=== PATIENT | male | born 1935 | race Hispanic/Latino ===

== ENCOUNTER 2020-08-07 17:15 | Emergency (ER) | payer MEDICARE ==
--- NOTE | 2020-08-07 17:34 | Emergency Department Report ---
ED Altered Mental Status HPI - General Stated Complaint: AGRRESIVE,OLD WOUND ON BACK PUI?: No Time Seen by Provider: 08/07/20 17:23 Source: patient Mode of arrival: Ambulatory Limitations: Altered Mental Status - History of Present Illness Initial Comments: Chief complaint: Violent behavior HPI: This is an 85 yo male with hx of Alzheimer's dementia and CAD s/p CABG who presents with belligerent, violent behavior. Alzheimer's dementia diagnosis 7-8 years ago.Today he went "berzerk". He threatened to kill the neighbors. He was chasing the neighbors with stick, jose and objects. The belligerent behavior began one year ago. stated that he sounded like "a wild animal" in back of police car. Patient has threatened to harm . Patient will not take his medications. also states that patient will not shower. Patient also has a right shoulder wound. is able to crush up aspirin tablets and food. However he will not take his 1 medication for dementia consistently. Patient is hyperverbal with threatening statements full of expletives. "I will kill you. You son of a b---h." This statement was directed to the police offic er at his bedside. Patient is currently in handcuffs. Dr. 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 Complaint: other (belligerent, agitated, violent) -: year(s) (one year) Severity: severe Consistency of Symptoms: waxing and waning (for the past year, worse today) Associated Symptoms: denies other symptoms - Related Data Allergies Allergy/AdvReac Type Severity Reaction Status Date / Time Unable to Assess Allergy Verified 08/07/20 18:49 ED Review of Systems ROS: Stated complaint: AGRRESIVE,OLD WOUND ON BACK Other details as noted in HPI Comment: Unobtainable due to pts medical conditions (dementia) ED Past Medical Hx - Past Medical History Previous Medical History?: Yes Hx Dementia: Yes Additional medical history: CAD s/p CABG - Surgical History Past Surgical History?: Yes Hx Open Heart Surgery: Yes (CABG) - Social History Smoking Status: Former Smoker (cigars, tobacco) Substance Use Type: Alcohol ("consumed quite a bit" stopped drinking 10-15 years ago) ED Physical Exam - General Limitations: Altered Mental Status (dementia) General appearance: alert, in no apparent distress, other (agitated) - Head Head exam: Present: atraumatic, normocephalic - Eye Eye exam: Present: normal appearance - ENT ENT exam: Present: mucous membranes moist - Neck Neck exam: Present: normal inspection, full ROM - Respiratory Respiratory exam: Present: normal lung sounds bilaterally. Absent: respiratory distress, wheezes, rales, rhonchi - Cardiovascular Cardiovascular Exam: Present: regular rate, normal rhythm, normal heart sounds. Absent: systolic murmur, diastolic murmur, rubs, gallop - GI/Abdominal GI/Abdominal exam: Present: soft, normal bowel sounds. Absent: distended, tenderness, guarding, rebound - Rectal Rectal exam: Present: deferred - Extremities Exam Extremities exam: Present: normal inspection - Neurological Exam Neurological exam: Present: alert, other (oriented to name only) - Psychiatric Psychiatric exam: Present: agitated - Skin Skin exam: Present: warm, dry, normal color, other (Right shoulder posterior: 3 cm skin avulsion superficial no surrounding erythema purulence.). Absent: rash ED Course Vital Signs 08/07/20 08/08/20 08/08/20 17:47 01:06 06:00 Temperature 97.8 F Pulse Rate 95 H Respiratory 22 18 Rate Blood Pressure 148/84 147/73 Blood Pressure 155/96 [Left] O2 Sat by Pulse 99 99 Oximetry 08/08/20 08/08/20 08/08/20 08:00 10:01 12:02 Temperature Pulse Rate Respiratory Rate Blood Pressure 148/64 141/64 147/61 Blood Pressure [Left] O2 Sat by Pulse 96 99 Oximetry 08/08/20 08/08/20 08/08/20 20:00 22:00 23:02 Temperature Pulse Rate 78 76 Respiratory 18 18 Rate Blood Pressure 141/83 139/64 168/72 Blood Pressure [Left] O2 Sat by Pulse 99 98 Oximetry 08/09/20 08/09/20 08/09/20 00:00 01:00 02:00 Temperature 97.8 F Pulse Rate Respiratory Rate Blood Pressure 187/76 164/74 Blood Pressure [Left] O2 Sat by Pulse 91 96 Oximetry 08/09/20 08/09/20 08/09/20 03:00 04:00 06:00 Temperature Pulse Rate 86 96 H 79 Respiratory 18 20 Rate Blood Pressure 133/85 Blood Pressure 133/85 135/91 [Left] O2 Sat by Pulse 96 98 Oximetry 08/09/20 08/10/20 08/10/20 21:30 04:00 11:50 Temperature 98.5 F 97.8 F 98.2 F Pulse Rate 98 H 90 84 Respiratory 18 18 20 Rate Blood Pressure Blood Pressure 145/90 151/75 152/78 [Left] O2 Sat by Pulse 96 96 93 Oximetry - Lab Data Result diagrams: 08/07/20 18:29 08/07/20 18:29 Lab Results 08/07/20 08/07/20 08/07/20 Range/Units 18:29 18:29 18:29 WBC 11.9 H (4.5-11.0) K/mm3 RBC 4.38 (3.65-5.03) M/mm3 Hgb 14.0 (11.8-15.2) gm/dl Hct 41.4 (35.5-45.6) % MCV 94 (84-94) fl MCH 32 (28-32) pg MCHC 34 (32-34) % RDW 12.7 L (13.2-15.2) % Plt Count 231 (140-440) K/mm3 Lymph % (Auto) 6.7 L (13.4-35.0) % [place] % (Auto) 7.3 (0.0-7.3) % Eos % (Auto) 0.4 (0.0-4.3) % Baso % (Auto) 0.4 (0.0-1.8) % Lymph # (Auto) 0.8 L (1.2-5.4) K/mm3 [place] # (Auto) 0.9 H (0.0-0.8) K/mm3 Eos # (Auto) 0.0 (0.0-0.4) K/mm3 Baso # (Auto) 0.1 (0.0-0.1) K/mm3 Seg Neutrophils % 85.2 H (40.0-70.0) % Seg Neutrophils # 10.1 H (1.8-7.7) K/mm3 Sodium 136 L (137-145) mmol/L Potassium 4.0 (3.6-5.0) mmol/L Chloride 100.7 (98-107) mmol/L Carbon Dioxide 23 (22-30) mmol/L Anion Gap 16 mmol/L BUN 13 (9-20) mg/dL Creatinine 0.8 (0.8-1.3) mg/dL Estimated GFR > 60 ml/min BUN/Creatinine Ratio 16 % Glucose 169 H (75-100) mg/dL POC Glucose (70-105) mg/dL Calcium 9.0 (8.4-10.2) mg/dL Total Bilirubin 1.60 H (0.1-1.2) mg/dL AST 18 (5-40) units/L ALT 11 (7-56) units/L Alkaline Phosphatase 79 (35-129) units/L Total Protein 7.1 (6.3-8.2) g/dL Albumin 3.6 L (3.9-5) g/dL Albumin/Globulin Ratio 1.0 % TSH 0.971 (0.270-4.200) mlU/mL Urine Color (Yellow) Urine Turbidity (Clear) Urine pH (5.0-7.0) Ur Specific [place] (1.003-1.030) Urine Protein (Negative) mg/dL Urine Glucose (UA) (Negative) mg/dL Urine Ketones (Negative) mg/dL Urine Blood (Negative) Urine Nitrite (Negative) Urine Bilirubin (Negative) Urine Urobilinogen (<2.0) mg/dL Ur Leukocyte Esterase (Negative) Urine WBC (Auto) (0.0-6.0) /HPF Urine RBC (Auto) (0.0-6.0) /HPF U Epithel Cells (Auto) (0-13.0) /HPF Urine Mucus /HPF Salicylates (2.8-20.0) mg/dL Urine Opiates Screen Urine Methadone Screen Acetaminophen (10.0-30.0) ug/mL Ur Barbiturates Screen Ur Phencyclidine Scrn Ur Amphetamines Screen U Benzodiazepines Scrn Urine Cocaine Screen U Marijuana (THC) Screen Drugs of Abuse Note Plasma/Serum Alcohol (0-0.07) % Coronavirus (PCR) (Negative) 08/07/20 08/07/20 08/07/20 Range/Units 18:29 18:29 18:29 WBC (4.5-11.0) K/mm3 RBC (3.65-5.03) M/mm3 Hgb (11.8-15.2) gm/dl Hct (35.5-45.6) % MCV (84-94) fl MCH (28-32) pg MCHC (32-34) % RDW (13.2-15.2) % Plt Count (140-440) K/mm3 Lymph % (Auto) (13.4-35.0) % Gove % (Auto) (0.0-7.3) % Eos % (Auto) (0.0-4.3) % Baso % (Auto) (0.0-1.8) % Lymph # (Auto) (1.2-5.4) K/mm3 [place] # (Auto) (0.0-0.8) K/mm3 Eos # (Auto) (0.0-0.4) K/mm3 Baso # (Auto) (0.0-0.1) K/mm3 Seg Neutrophils % (40.0-70.0) % Seg Neutrophils # (1.8-7.7) K/mm3 Sodium (137-145) mmol/L Potassium (3.6-5.0) mmol/L Chloride (98-107) mmol/L Carbon Dioxide (22-30) mmol/L Anion Gap mmol/L BUN (9-20) mg/dL Creatinine (0.8-1.3) mg/dL Estimated GFR ml/min BUN/Creatinine Ratio % Glucose (75-100) mg/dL POC Glucose (70-105) mg/dL Calcium (8.4-10.2) mg/dL Total Bilirubin (0.1-1.2) mg/dL AST (5-40) units/L ALT (7-56) units/L Alkaline Phosphatase (35-129) units/L Total Protein (6.3-8.2) g/dL Albumin (3.9-5) g/dL Albumin/Globulin Ratio % TSH (0.270-4.200) mlU/mL Urine Color (Yellow) Urine Turbidity (Clear) Urine pH (5.0-7.0) Ur Specific [place] (1.003-1.030) Urine Protein (Negative) mg/dL Urine Glucose (UA) (Negative) mg/dL Urine Ketones (Negative) mg/dL Urine Blood (Negative) Urine Nitrite (Negative) Urine Bilirubin (Negative) Urine Urobilinogen (<2.0) mg/dL Ur Leukocyte Esterase (Negative) Urine WBC (Auto) (0.0-6.0) /HPF Urine RBC (Auto) (0.0-6.0) /HPF U Epithel Cells (Auto) (0-13.0) /HPF Urine Mucus /HPF Salicylates < 0.3 L (2.8-20.0) mg/dL Urine Opiates Screen Urine Methadone Screen Acetaminophen 5.0 L (10.0-30.0) ug/mL Ur Barbiturates Screen Ur Phencyclidine Scrn Ur Amphetamines Screen U Benzodiazepines Scrn Urine Cocaine Screen U Marijuana (THC) Screen Drugs of Abuse Note Plasma/Serum Alcohol < 0.01 (0-0.07) % Coronavirus (PCR) (Negative) 08/08/20 08/08/20 08/08/20 Range/Units Unknown Unknown Unknown WBC (4.5-11.0) K/mm3 RBC (3.65-5.03) M/mm3 Hgb (11.8-15.2) gm/dl Hct (35.5-45.6) % MCV (84-94) fl MCH (28-32) pg MCHC (32-34) % RDW (13.2-15.2) % Plt Count (140-440) K/mm3 Lymph % (Auto) (13.4-35.0) % Gove % (Auto) (0.0-7.3) % Eos % (Auto) (0.0-4.3) % Baso % (Auto) (0.0-1.8) % Lymph # (Auto) (1.2-5.4) K/mm3 [place] # (Auto) (0.0-0.8) K/mm3 Eos # (Auto) (0.0-0.4) K/mm3 Baso # (Auto) (0.0-0.1) K/mm3 Seg Neutrophils % (40.0-70.0) % Seg Neutrophils # (1.8-7.7) K/mm3 Sodium (137-145) mmol/L Potassium (3.6-5.0) mmol/L Chloride (98-107) mmol/L Carbon Dioxide (22-30) mmol/L Anion Gap mmol/L BUN (9-20) mg/dL Creatinine (0.8-1.3) mg/dL Estimated GFR ml/min BUN/Creatinine Ratio % Glucose (75-100) mg/dL POC Glucose (70-105) mg/dL Calcium (8.4-10.2) mg/dL Total Bilirubin (0.1-1.2) mg/dL AST (5-40) units/L ALT (7-56) units/L Alkaline Phosphatase (35-129) units/L Total Protein (6.3-8.2) g/dL Albumin (3.9-5) g/dL Albumin/Globulin Ratio % TSH (0.270-4.200) mlU/mL Urine Color Yellow (Yellow) Urine Turbidity Slightly-cloudy (Clear) Urine pH 5.0 (5.0-7.0) Ur Specific [place] 1.019 (1.003-1.030) Urine Protein 30 mg/dl (Negative) mg/dL Urine Glucose (UA) Neg (Negative) mg/dL Urine Ketones 80 (Negative) mg/dL Urine Blood Mod (Negative) Urine Nitrite Neg (Negative) Urine Bilirubin Neg (Negative) Urine Urobilinogen < 2.0 (<2.0) mg/dL Ur Leukocyte Esterase Neg (Negative) Urine WBC (Auto) 8.0 H (0.0-6.0) /HPF Urine RBC (Auto) 8.0 (0.0-6.0) /HPF U Epithel Cells (Auto) < 1.0 (0-13.0) /HPF Urine Mucus Few /HPF Salicylates (2.8-20.0) mg/dL Urine Opiates Screen Presumptive negative Urine Methadone Screen Presumptive negative Acetaminophen (10.0-30.0) ug/mL Ur Barbiturates Screen Presumptive negative Ur Phencyclidine Scrn Presumptive negative Ur Amphetamines Screen Presumptive negative U Benzodiazepines Scrn Presumptive negative Urine Cocaine Screen Presumptive negative U Marijuana (THC) Screen Presumptive negative Drugs of Abuse Note Disclamer Plasma/Serum Alcohol (0-0.07) % Coronavirus (PCR) Negative (Negative) 08/10/20 Range/Units 04:46 WBC (4.5-11.0) K/mm3 RBC (3.65-5.03) M/mm3 Hgb (11.8-15.2) gm/dl Hct (35.5-45.6) % MCV (84-94) fl MCH (28-32) pg MCHC (32-34) % RDW (13.2-15.2) % Plt Count (140-440) K/mm3 Lymph % (Auto) (13.4-35.0) % Gove % (Auto) (0.0-7.3) % Eos % (Auto) (0.0-4.3) % Baso % (Auto) (0.0-1.8) % Lymph # (Auto) (1.2-5.4) K/mm3 [place] # (Auto) (0.0-0.8) K/mm3 Eos # (Auto) (0.0-0.4) K/mm3 Baso # (Auto) (0.0-0.1) K/mm3 Seg Neutrophils % (40.0-70.0) % Seg Neutrophils # (1.8-7.7) K/mm3 Sodium (137-145) mmol/L Potassium (3.6-5.0) mmol/L Chloride (98-107) mmol/L Carbon Dioxide (22-30) mmol/L Anion Gap mmol/L BUN (9-20) mg/dL Creatinine (0.8-1.3) mg/dL Estimated GFR ml/min BUN/Creatinine Ratio % Glucose (75-100) mg/dL POC Glucose 84 (70-105) mg/dL Calcium (8.4-10.2) mg/dL Total Bilirubin (0.1-1.2) mg/dL AST (5-40) units/L ALT (7-56) units/L Alkaline Phosphatase (35-129) units/L Total Protein (6.3-8.2) g/dL Albumin (3.9-5) g/dL Albumin/Globulin Ratio % TSH (0.270-4.200) mlU/mL Urine Color (Yellow) Urine Turbidity (Clear) Urine pH (5.0-7.0) Ur Specific [place] (1.003-1.030) Urine Protein (Negative) mg/dL Urine Glucose (UA) (Negative) mg/dL Urine Ketones (Negative) mg/dL Urine Blood (Negative) Urine Nitrite (Negative) Urine Bilirubin (Negative) Urine Urobilinogen (<2.0) mg/dL Ur Leukocyte Esterase (Negative) Urine WBC (Auto) (0.0-6.0) /HPF Urine RBC (Auto) (0.0-6.0) /HPF U Epithel Cells (Auto) (0-13.0) /HPF Urine Mucus /HPF Salicylates (2.8-20.0) mg/dL Urine Opiates Screen Urine Methadone Screen Acetaminophen (10.0-30.0) ug/mL Ur Barbiturates Screen Ur Phencyclidine Scrn Ur Amphetamines Screen U Benzodiazepines Scrn Urine Cocaine Screen U Marijuana (THC) Screen Drugs of Abuse Note Plasma/Serum Alcohol (0-0.07) % Coronavirus (PCR) (Negative) - Medical Decision Making 1. Alzheimer's Dementia: violent behavior toward neighbors who called 911, patient presents to ED in handcuffs. I witnessed patient making threatening statements with homicidal intent. He required chemical and physical restraint upon arrival. Patient appears appropriate for admission to the geriatric mental health unit. Case management consultation requested. Patient is medically clear for psychiatric care. 2. Right shoulder wound: Skin avulsion, needs only minor supportive care. The wound is not tetanus prone. Tdap booster not administered Critical Care Time: Yes Critical care time in (mins) excluding proc time.: 40 Critical care attestation.: If time is entered above; I have spent that time in minutes in the direct care of this critically ill patient, excluding procedure time. 40 minutes of critical care time excluding procedures were used in the care of the patient. I came immediately to the bedside upon patient's arrival. I obtained history from police officers. Patient required immediate physical and chemical restraint. I discussed treatment plan with the nursing team members. I reviewed electronic record. I obtained collateral history from per phone. I was concerned for elopement. I was concerned that patient would attempt to harm staff or himself. Patient required multiple interventions and reassessments. ED Disposition Clinical Impression: Alzheimer's dementia with behavioral disturbance, Homicidal ideation Disposition: DC/TX-70 ANOTHER TYPE HLTHCARE Is pt being admited?: Yes Does the pt Need Aspirin: No Condition: Stable Referrals: DANIEL BRYANT MD [Primary Care Provider] - 3-5 Days
[2020-08-07] MEDS ORDERED: LORazepam 2 MG/ML VIAL IM STA (17:50)
[2020-08-07] MEDS ORDERED: HALOPERIDOL LACTATE 5 MG/1 ML INJ IM ONE (17:50)
[2020-08-07 18:56] LABS: Basophils # (Auto) 0.1 K/mm3 (0.0-0.1); Basophils % (Auto) 0.4 % (0.0-1.8); Eosinophils % (Auto) 0.4 % (0.0-4.3); Hematocrit 41.4 % (35.5-45.6); Lymphocytes # (Auto) 0.8 K/mm3 (1.2-5.4); Lymphocytes % (Auto) 6.7 % (13.4-35.0); Mean Corpuscular HGB Conc 34 % (32-34); Mean Corpuscular Volume 94 fl (84-94); Monocytes # (Auto) 0.9 K/mm3 (0.0-0.8); Monocytes % (Auto) 7.3 % (0.0-7.3); Platelet Count 231 K/mm3 (140-440); Red Blood Count 4.38 M/mm3 (3.65-5.03); Red Cell Distribution Width 12.7 % (13.2-15.2)
[2020-08-07 19:06] LABS: Alanine Aminotransferase 11 units/L (7-56); Albumin 3.6 g/dL (3.9-5); BUN/Creatinine Ratio 16; Blood Urea Nitrogen 13 mg/dL (9-20); Hemolysis Index 11
[2020-08-07] MEDS ORDERED: LORazepam 2 MG/ML VIAL IM PRN (22:22)
--- NOTE | 2020-08-08 10:12 | Consultation ---
History of Present Illness - Reason for Consult Consult date: 08/08/20 Reason for consult: aggression, threatening - History of Present Psychiatric Illness Per ED Note: HPI: This is an 85 yo male with hx of Alzheimer's dementia and CAD s/p CABG who presents with belligerent, violent behavior. Alzheimer's dementia diagnosis 7-8 years ago.Today he went "berzerk". He threatened to kill the neighbors. He was chasing the neighbors with stick, jose and objects. The belligerent behavior began one year ago. stated that he sounded like "a wild animal" in back of police car. Patient has threatened to harm . Patient will not take his medications. also states that patient will not shower. Patient also has a right shoulder wound. is able to crush up aspirin tablets and food. However he will not take his 1 medication for dementia consistently. Patient is hyperverbal with threatening statements full of expletives. "I will kill you. You son of a b---h." This statement was directed to the police inspector at his bedside. Patient is currently in handcuffs. The patient was seen today, he is confused, he is laying down mumbling and speaking nonsensically. I could not engage him in the interview. PAST PSYCHIATRIC HISTORY Unable to obtain PAST MEDICAL HISTORY: None reported Family Psychiatric History: None reported or documented SOCIAL HISTORY unable to obtain REVIEW OF SYSTEMS unable to obtain MENTAL STATUS EXAMINATION unable to obtain Assessment and Plan (1) Dementia with Behavioral Disturbance Current Visit: Yes Status: Acute Treatment Plan 1013 Olanzapine 2.5mg po daily Mirtazepine 7.mg po qhs Risks, benefits and alternatives of medications discussed with the patient, questions answered and consent obtained from patient. PSYCHOTHERAPY: Supportive psychotherapy provided MEDICAL: Per primary team DELIRIUM PRECAUTIONS: Please re-orient patient frequently, keep lights on during the day, and minimize benzodiazepines and opiates as these medications could worsen patient's confusion. GRANT SPECIALIST: Per primary DISPOSITION: Due to report of the patient's violent and aggressive behavior, recommend acute inpatient psychiatric hospitalization at this time. Will follow. Thank you for the consult. Please contact with any questions and/ or concerns. Case discussed with Dr. Ferro who agrees with current disposition Medications and Allergies Allergies Allergy/AdvReac Type Severity Reaction Status Date / Time Unable to Assess Allergy Verified 08/07/20 18:49 Active Meds: Active Medications Lorazepam (Lorazepam 2 Mg/Ml Vial) 2 mg IM Q4H PRN PRN Reason: Agitation Mental Status Exam - Vital signs Last Vital Signs Temp 97.8 F 08/08/20 01:06 Pulse 95 H 08/08/20 01:06 Resp 18 08/08/20 01:06 BP 148/64 08/08/20 08:00 Pulse Ox 96 08/08/20 08:00 Results Result Diagrams: 08/07/20 18:29 08/07/20 18:29 Abnormal lab results 08/07/20 08/07/20 08/07/20 Range/Units 18:29 18:29 18:29 WBC 11.9 H (4.5-11.0) K/mm3 RDW 12.7 L (13.2-15.2) % Lymph % (Auto) 6.7 L (13.4-35.0) % Lymph # (Auto) 0.8 L (1.2-5.4) K/mm3 [place] # (Auto) 0.9 H (0.0-0.8) K/mm3 Seg Neutrophils % 85.2 H (40.0-70.0) % Seg Neutrophils # 10.1 H (1.8-7.7) K/mm3 Sodium 136 L (137-145) mmol/L Glucose 169 H (75-100) mg/dL Total Bilirubin 1.60 H (0.1-1.2) mg/dL Albumin 3.6 L (3.9-5) g/dL Salicylates < 0.3 L (2.8-20.0) mg/dL Acetaminophen (10.0-30.0) ug/mL 08/07/20 Range/Units 18:29 WBC (4.5-11.0) K/mm3 RDW (13.2-15.2) % Lymph % (Auto) (13.4-35.0) % Lymph # (Auto) (1.2-5.4) K/mm3 [place] # (Auto) (0.0-0.8) K/mm3 Seg Neutrophils % (40.0-70.0) % Seg Neutrophils # (1.8-7.7) K/mm3 Sodium (137-145) mmol/L Glucose (75-100) mg/dL Total Bilirubin (0.1-1.2) mg/dL Albumin (3.9-5) g/dL Salicylates (2.8-20.0) mg/dL Acetaminophen 5.0 L (10.0-30.0) ug/mL All other labs normal.
--- NOTE | 2020-08-08 10:27 | Emergency Department Report ---
Blank Doc - Documentation Documentation: Awaiting transfer to psychiatric facility No new complaints
[2020-08-08] MEDS: MIRTAZAPINE 15 MG TAB PO SCH (22:30)
[2020-08-08 23:09] LABS: Amphetamine Screen,Urine PRESUMPTIVE NEGATIVE; Benzodiazepines Screen,Urine PRESUMPTIVE NEGATIVE; Bilirubin,Urine NEG (Negative); Blood,Urine MOD (Negative); Cannabinoid Screen,Urine PRESUMPTIVE NEGATIVE; Cocaine Screen,Urine PRESUMPTIVE NEGATIVE; Color,Urine Yellow (Yellow); Methadone Screen,Urine PRESUMPTIVE NEGATIVE; Mucus,Urine FEW /HPF; Opiate Screen,Urine PRESUMPTIVE NEGATIVE; Urobilinogen,Urine < 2.0 mg/dL (<2.0)
--- NOTE | 2020-08-09 11:28 | Progress Note ---
Subjective - Reason for Consult Consult date: 08/09/20 Reason for consult: agitation - Chief Complaint Chief complaint: The patient was seen today, he appears restless, and agitated, he is moving about over the bed. He is confused and talking nonsensically. I adjust the patient's arm which is hanging over the bed. He is resistant of me helping him. REVIEW OF SYSTEMS unable to obtain MENTAL STATUS EXAMINATION unable to obtain Assessment and Plan (1) Dementia with Behavioral Disturbance Current Visit: Yes Status: Acute Treatment Plan 1013 Increase Olanzapine 5mg po daily Continue Mirtazepine 7.mg po qhs Risks, benefits and alternatives of medications discussed with the patient, questions answered and consent obtained from patient. PSYCHOTHERAPY: Supportive psychotherapy provided MEDICAL: Per primary team DELIRIUM PRECAUTIONS: Please re-orient patient frequently, keep lights on during the day, and minimize benzodiazepines and opiates as these medications could worsen patient's confusion. EVENT PROMOTER: Per primary DISPOSITION: Due to report of the patient's violent and aggressive behavior, recommend acute inpatient psychiatric hospitalization at this time. Will follow. Thank you for the consult. Please contact with any questions and/or concerns. Case discussed with Dr. Ferro who agrees with current disposition Mental Status Exam - Vital signs Last Vital Signs Temp 97.8 F 08/09/20 01:00 Pulse 79 08/09/20 06:00 Resp 20 08/09/20 06:00 BP 135/91 08/09/20 06:00 Pulse Ox 98 08/09/20 06:00
[2020-08-09] MEDS ORDERED: diphenhydrAMINE 25 MG CAP PO PRN (12:45)
[2020-08-09] MEDS ORDERED: ACETAMINOPHEN 325 MG TAB PO PRN (12:45)
[2020-08-09] MEDS ORDERED: ONDANSETRON 4 MG ODT TAB PO PRN (12:45)
--- NOTE | 2020-08-09 12:48 | Event Note ---
Date: 08/09/20 The patient was evaluated in the emergency department for symptoms described in the history of present illness. He/she was evaluated in the context of the global COVID-19 pandemic, which necessitated consideration that the patient might be at risk for infection with the virus that causes COVID-19. Institutional protocols and algorithms that pertain to the evaluation of patients at risk for COVID-19 are in a state of rapid change based on information released by regulatory bodies including the CDC and federal and state organizations. These policies and algorithms were followed during the patient's care in the emergency department. Please note that these policies, procedures and recommendations changed on a rapid basis. Patient resting comfortably in stretcher at this time, and in no acute distress. Psychiatric recommendations are reviewed and appreciated. ER documentation is reviewed and appreciated. Nursing team endorses no events overnight. Laboratory studies vital signs are reviewed and appreciated. Urinalysis demonstrated pyuria. We will initiate Macrobid therapy. Patient remains medically suitable at this time for psychiatric placement, consultation. Patient does not appear to have an emergent medical condition present at this time. Vital Signs 08/07/20 08/08/20 08/08/20 17:47 01:06 06:00 Temperature 97.8 F Pulse Rate 95 H Respiratory 22 18 Rate Blood Pressure 148/84 147/73 Blood Pressure 155/96 [Left] O2 Sat by Pulse 99 99 Oximetry 08/08/20 08/08/20 08/08/20 08:00 10:01 12:02 Temperature Pulse Rate Respiratory Rate Blood Pressure 148/64 141/64 147/61 Blood Pressure [Left] O2 Sat by Pulse 96 99 Oximetry 08/08/20 08/08/20 08/08/20 20:00 22:00 23:02 Temperature Pulse Rate 78 76 Respiratory 18 18 Rate Blood Pressure 141/83 139/64 168/72 Blood Pressure [Left] O2 Sat by Pulse 99 98 Oximetry 08/09/20 08/09/20 08/09/20 00:00 01:00 02:00 Temperature 97.8 F Pulse Rate Respiratory Rate Blood Pressure 187/76 164/74 Blood Pressure [Left] O2 Sat by Pulse 91 96 Oximetry 08/09/20 08/09/20 08/09/20 03:00 04:00 06:00 Temperature Pulse Rate 86 96 H 79 Respiratory 18 20 Rate Blood Pressure 133/85 Blood Pressure 133/85 135/91 [Left] O2 Sat by Pulse 96 98 Oximetry Lab Results 08/07/20 08/07/20 08/07/20 Range/Units 18:29 18:29 18:29 WBC 11.9 H (4.5-11.0) K/mm3 RBC 4.38 (3.65-5.03) M/mm3 Hgb 14.0 (11.8-15.2) gm/dl Hct 41.4 (35.5-45.6) % MCV 94 (84-94) fl MCH 32 (28-32) pg MCHC 34 (32-34) % RDW 12.7 L (13.2-15.2) % Plt Count 231 (140-440) K/mm3 Lymph % (Auto) 6.7 L (13.4-35.0) % [place] % (Auto) 7.3 (0.0-7.3) % Eos % (Auto) 0.4 (0.0-4.3) % Baso % (Auto) 0.4 (0.0-1.8) % Lymph # (Auto) 0.8 L (1.2-5.4) K/mm3 [place] # (Auto) 0.9 H (0.0-0.8) K/mm3 Eos # (Auto) 0.0 (0.0-0.4) K/mm3 Baso # (Auto) 0.1 (0.0-0.1) K/mm3 Seg Neutrophils % 85.2 H (40.0-70.0) % Seg Neutrophils # 10.1 H (1.8-7.7) K/mm3 Sodium 136 L (137-145) mmol/L Potassium 4.0 (3.6-5.0) mmol/L Chloride 100.7 (98-107) mmol/L Carbon Dioxide 23 (22-30) mmol/L Anion Gap 16 mmol/L BUN 13 (9-20) mg/dL Creatinine 0.8 (0.8-1.3) mg/dL Estimated GFR > 60 ml/min BUN/Creatinine Ratio 16 % Glucose 169 H (75-100) mg/dL Calcium 9.0 (8.4-10.2) mg/dL Total Bilirubin 1.60 H (0.1-1.2) mg/dL AST 18 (5-40) units/L ALT 11 (7-56) units/L Alkaline Phosphatase 79 (35-129) units/L Total Protein 7.1 (6.3-8.2) g/dL Albumin 3.6 L (3.9-5) g/dL Albumin/Globulin Ratio 1.0 % TSH 0.971 (0.270-4.200) mlU/mL Urine Color (Yellow) Urine Turbidity (Clear) Urine pH (5.0-7.0) Ur Specific Hyrum (1.003-1.030) Urine Protein (Negative) mg/dL Urine Glucose (UA) (Negative) mg/dL Urine Ketones (Negative) mg/dL Urine Blood (Negative) Urine Nitrite (Negative) Urine Bilirubin (Negative) Urine Urobilinogen (<2.0) mg/dL Ur Leukocyte Esterase (Negative) Urine WBC (Auto) (0.0-6.0) /HPF Urine RBC (Auto) (0.0-6.0) /HPF U Epithel Cells (Auto) (0-13.0) /HPF Urine Mucus /HPF Salicylates (2.8-20.0) mg/dL Urine Opiates Screen Urine Methadone Screen Acetaminophen (10.0-30.0) ug/mL Ur Barbiturates Screen Ur Phencyclidine Scrn Ur Amphetamines Screen U Benzodiazepines Scrn Urine Cocaine Screen U Marijuana (THC) Screen Drugs of Abuse Note Plasma/Serum Alcohol (0-0.07) % Coronavirus (PCR) (Negative) 08/07/20 08/07/20 08/07/20 Range/Units 18:29 18:29 18:29 WBC (4.5-11.0) K/mm3 RBC (3.65-5.03) M/mm3 Hgb (11.8-15.2) gm/dl Hct (35.5-45.6) % MCV (84-94) fl MCH (28-32) pg MCHC (32-34) % RDW (13.2-15.2) % Plt Count (140-440) K/mm3 Lymph % (Auto) (13.4-35.0) % [place] % (Auto) (0.0-7.3) % Eos % (Auto) (0.0-4.3) % Baso % (Auto) (0.0-1.8) % Lymph # (Auto) (1.2-5.4) K/mm3 [place] # (Auto) (0.0-0.8) K/mm3 Eos # (Auto) (0.0-0.4) K/mm3 Baso # (Auto) (0.0-0.1) K/mm3 Seg Neutrophils % (40.0-70.0) % Seg Neutrophils # (1.8-7.7) K/mm3 Sodium (137-145) mmol/L Potassium (3.6-5.0) mmol/L Chloride (98-107) mmol/L Carbon Dioxide (22-30) mmol/L Anion Gap mmol/L BUN (9-20) mg/dL Creatinine (0.8-1.3) mg/dL Estimated GFR ml/min BUN/Creatinine Ratio % Glucose (75-100) mg/dL Calcium (8.4-10.2) mg/dL Total Bilirubin (0.1-1.2) mg/dL AST (5-40) units/L ALT (7-56) units/L Alkaline Phosphatase (35-129) units/L Total Protein (6.3-8.2) g/dL Albumin (3.9-5) g/dL Albumin/Globulin Ratio % TSH (0.270-4.200) mlU/mL Urine Color (Yellow) Urine Turbidity (Clear) Urine pH (5.0-7.0) Ur Specific Hyrum (1.003-1.030) Urine Protein (Negative) mg/dL Urine Glucose (UA) (Negative) mg/dL Urine Ketones (Negative) mg/dL Urine Blood (Negative) Urine Nitrite (Negative) Urine Bilirubin (Negative) Urine Urobilinogen (<2.0) mg/dL Ur Leukocyte Esterase (Negative) Urine WBC (Auto) (0.0-6.0) /HPF Urine RBC (Auto) (0.0-6.0) /HPF U Epithel Cells (Auto) (0-13.0) /HPF Urine Mucus /HPF Salicylates < 0.3 L (2.8-20.0) mg/dL Urine Opiates Screen Urine Methadone Screen Acetaminophen 5.0 L (10.0-30.0) ug/mL Ur Barbiturates Screen Ur Phencyclidine Scrn Ur Amphetamines Screen U Benzodiazepines Scrn Urine Cocaine Screen U Marijuana (THC) Screen Drugs of Abuse Note Plasma/Serum Alcohol < 0.01 (0-0.07) % Coronavirus (PCR) (Negative) 08/08/20 08/08/20 08/08/20 Range/Units Unknown Unknown Unknown WBC (4.5-11.0) K/mm3 RBC (3.65-5.03) M/mm3 Hgb (11.8-15.2) gm/dl Hct (35.5-45.6) % MCV (84-94) fl MCH (28-32) pg MCHC (32-34) % RDW (13.2-15.2) % Plt Count (140-440) K/mm3 Lymph % (Auto) (13.4-35.0) % [place] % (Auto) (0.0-7.3) % Eos % (Auto) (0.0-4.3) % Baso % (Auto) (0.0-1.8) % Lymph # (Auto) (1.2-5.4) K/mm3 [place] # (Auto) (0.0-0.8) K/mm3 Eos # (Auto) (0.0-0.4) K/mm3 Baso # (Auto) (0.0-0.1) K/mm3 Seg Neutrophils % (40.0-70.0) % Seg Neutrophils # (1.8-7.7) K/mm3 Sodium (137-145) mmol/L Potassium (3.6-5.0) mmol/L Chloride (98-107) mmol/L Carbon Dioxide (22-30) mmol/L Anion Gap mmol/L BUN (9-20) mg/dL Creatinine (0.8-1.3) mg/dL Estimated GFR ml/min BUN/Creatinine Ratio % Glucose (75-100) mg/dL Calcium (8.4-10.2) mg/dL Total Bilirubin (0.1-1.2) mg/dL AST (5-40) units/L ALT (7-56) units/L Alkaline Phosphatase (35-129) units/L Total Protein (6.3-8.2) g/dL Albumin (3.9-5) g/dL Albumin/Globulin Ratio % TSH (0.270-4.200) mlU/mL Urine Color Yellow (Yellow) Urine Turbidity Slightly-cloudy (Clear) Urine pH 5.0 (5.0-7.0) Ur Specific Hyrum 1.019 (1.003-1.030) Urine Protein 30 mg/dl (Negative) mg/dL Urine Glucose (UA) Neg (Negative) mg/dL Urine Ketones 80 (Negative) mg/dL Urine Blood Mod (Negative) Urine Nitrite Neg (Negative) Urine Bilirubin Neg (Negative) Urine Urobilinogen < 2.0 (<2.0) mg/dL Ur Leukocyte Esterase Neg (Negative) Urine WBC (Auto) 8.0 H (0.0-6.0) /HPF Urine RBC (Auto) 8.0 (0.0-6.0) /HPF U Epithel Cells (Auto) < 1.0 (0-13.0) /HPF Urine Mucus Few /HPF Salicylates (2.8-20.0) mg/dL Urine Opiates Screen Presumptive negative Urine Methadone Screen Presumptive negative Acetaminophen (10.0-30.0) ug/mL Ur Barbiturates Screen Presumptive negative Ur Phencyclidine Scrn Presumptive negative Ur Amphetamines Screen Presumptive negative U Benzodiazepines Scrn Presumptive negative Urine Cocaine Screen Presumptive negative U Marijuana (THC) Screen Presumptive negative Drugs of Abuse Note Disclamer Plasma/Serum Alcohol (0-0.07) % Coronavirus (PCR) Negative (Negative)
[2020-08-09] MEDS: NITROFURANTOIN MONOHYD/M-CRYST 100 MG CAP PO SCH ×2 (17:18→21:50)
[2020-08-09] MEDS: MIRTAZAPINE 15 MG TAB PO SCH (21:50)
[2020-08-10] MEDS ORDERED: SODIUM CHLORIDE 0.9% 1000 ML 0 ML ONE (08:51)
--- NOTE | 2020-08-10 10:06 | Progress Note ---
Subjective - Reason for Consult Consult date: 08/10/20 Reason for consult: agititation - Chief Complaint Chief complaint: The patient was seen today, he appears restless, he is moving around bed with his eyes closed. He doesn't respond or acknowledge my presence. REVIEW OF SYSTEMS unable to obtain MENTAL STATUS EXAMINATION unable to obtain Assessment and Plan (1) Dementia with Behavioral Disturbance Current Visit: Yes Status: Acute Treatment Plan 1013 Continue Olanzapine 5mg po daily Continue Mirtazepine 7.5mg po qhs Risks, benefits and alternatives of medications discussed with the patient, questions answered and consent obtained from patient. PSYCHOTHERAPY: Supportive psychotherapy provided MEDICAL: Per primary team DELIRIUM PRECAUTIONS: Please re-orient patient frequently, keep lights on during the day, and minimize benzodiazepines and opiates as these medications could worsen patient's confusion. BODY ARTIST: Per primary DISPOSITION: Due to report of the patient's violent and aggressive behavior, recommend acute inpatient psychiatric hospitalization at this time. Will follow. Thank you for the consult. Please contact with any questions and/or concerns. Case discussed with Dr. Ferro who agrees with current disposition Mental Status Exam - Vital signs Last Vital Signs Temp 97.8 F 08/10/20 04:00 Pulse 90 08/10/20 04:00 Resp 18 08/10/20 04:00 BP 151/75 08/10/20 04:00 Pulse Ox 96 08/10/20 04:00
--- NOTE | 2020-08-10 12:35 | Event Note ---
Date: 08/10/20 S: Per dayshift nurse, medications were not given on yesterday because patient was "too sedated." O: Vital signs are stable. Patient was initially asleep but easily arousable. He is calm and cooperative. Patient is conversive, however, his conversation is nonsensical. Patient drink 1 cup of water with me. He is currently eating a lunch tray and drinking in apple juice. A: Alzheimer's dementia with behavioral disturbance P: 1013; awaiting placement for inpatient psychiatric treatment
[2020-08-10] MEDS: NITROFURANTOIN MONOHYD/M-CRYST 100 MG CAP PO SCH (12:39)
[2020-08-11 15:06] VITALS: BP 126/68
[2020-08-11] MEDS ORDERED: MIRTAZAPINE 15 MG TAB ONE (23:49)
[2020-08-11] MEDS ORDERED: NITROFURANTOIN MONOHYD/M-CRYST 100 MG CAP ONE (23:49)
== END 2020-08-12 00:37 | disposition admitted as inpatient to this hospital (09) ==
LOC: ED 17:15
DX: R45.850 Homicidal ideations (principal); Z20.822 Contact with and (suspected) exposure to COVID-19; G30.9 Alzheimer's disease, unspecified; F02.81 Dementia in other diseases classified elsewhere, unspecified severity, with behavioral disturbance; Z98.890 Other specified postprocedural states; Z87.891 Personal history of nicotine dependence
CPT/HCPCS: 36415; 80053; 80307; 81001; 82962; 84443; 85025; 96372; 99285; J1630; J2060; U0003; 80320; G0480; J7030

== ENCOUNTER 2020-08-11 10:42 | Inpatient (IN) | payer MEDICARE ==
--- NOTE | 2020-08-11 16:11 | Consultation ---
History of Present Illness - Reason for Consult Consult date: 08/11/20 Medical Management Requesting physician: KELLY NGO - History of Present Illness 85 YO Male with Alzheimers Dementia with Behavioral Disturbance, Cerebral Atherosclerosis, CAD admitted to [facility] for Psychiatric stabilization. Consult placed by Dr. Ngo for medical management. The patient was seen and evaluated in his room. Patient resting. No reports of fever, chills, chest pa in, palpitation, productive cough, skin rash, recent ill contacts, or known exposure to COVID-19. No reported nursing events. Pt has tangential thinking. Past History Past Medical History: CAD, other (See HPI) Past Surgical History: CABG Social history: , lives with family. denies: smoking, alcohol abuse Family history: CAD, hypertension Medications and Allergies Allergies Allergy/AdvReac Type Severity Reaction Status Date / Time No Known Allergies Allergy Unverified 08/12/20 00:04 Home Medications Medication Instructions Recorded Confirmed Last Taken Type AtorvaSTATin [Lipitor] 40 mg PO QHS 08/11/20 08/11/[address] [DepaKOTE DR] 125 mg PO BID 08/11/20 08/11/20 Unknown History Isosorbide Mononitrate [Isosorbide 30 mg PO DAILY 08/11/20 08/11/20 Unknown History Mononitrate ER] carvediloL [Coreg] 3.125 mg PO BID 08/11/20 08/11/20 Unknown History donepeziL [Aricept] 10 mg PO HS 08/11/20 08/11/20 Unknown History Nitrofurantoin Zavala/M-Cryst 100 mg PO Q12HR 08/12/20 08/12/20 Unknown History [Macrobid CAP] Active Meds: Active Medications Fish Oil ([place]-3 Fatty Acids/Fish Oil 1 Gram Cap) 2,000 mg PO BID RENITA Melatonin (Melatonin 5 Mg Tab) 5 mg PO QHS PRN PRN Reason: Sleep Risperidone (Risperidone 0.25 Mg Tab) 0.5 mg PO BID RENITA Trazodone HCl (Trazodone 50 Mg Tab) 50 mg PO QHS RENITA Review of Systems Constitutional: no weight loss, no weight gain, no fever, no chills Ears, nose, mouth and throat: no ear pain, no ear discharge, no tinnitis, no decreased hearing, no nose pain, no nasal congestion Cardiovascular: no chest pain, no palpitations, no rapid/irregular heart beat, no edema Respiratory: no cough, no excessive sputum, no hemoptysis Gastrointestinal: no abdominal pain, no nausea, no diarrhea Genitourinary Male: no hematuria, no flank pain, no discharge, no urinary frequency, no urinary hesitancy Rectal: no pain, no incontinence, no bleeding Musculoskeletal: no neck stiffness, no neck pain, no shooting arm pain, no arm numbness/tingling, no low back pain, no shooting leg pain Integumentary: no rash, no pruritis, no redness, no sores, no wounds Neurological: no head injury, no transient paralysis, no paralysis, no numbness Psychiatric: no anxiety Endocrine: no cold intolerance, no heat intolerance, no polyphagia, no excessive thirst, no polyuria Hematologic/Lymphatic: no easy bruising, no easy bleeding Allergic/Immunologic: no urticaria, no allergic rhinitis, no wheezing Exam - Constitutional General appearance: Present: no acute distress, well-nourished - EENT Eyes: Present: PERRL ENT: hearing intact, clear oral mucosa - Neck Neck: Present: supple, normal ROM - Respiratory Respiratory effort: normal Respiratory: bilateral: CTA - Cardiovascular Heart Sounds: Present: S1 & S2. Absent: rub, click - Extremities Extremities: pulses symmetrical, No edema Peripheral Pulses: within normal limits - Abdominal General gastrointestinal: Present: soft, non-tender, non-distended, normal bowel sounds Male genitourinary: Present: normal - Integumentary Integumentary: Present: clear, warm, dry - Musculoskeletal Musculoskeletal: gait normal, strength equal bilaterally - Psychiatric Psychiatric: appropriate mood/affect, intact judgment & insight - Neurologic Neurologic: CNII-XII intact, moves all extremities Results - Labs CBC & Chem 7: 08/12/20 07:59 08/12/20 07:57 Assessment and Plan - Patient Problems (1) Cerebral atherosclerosis Current Visit: Yes Status: Acute Plan to address problem: Verbal prompting, Verbal redirection, benzodiazepine therapy as clinically indicated (2) Alzheimer's dementia with behavioral disturbance Current Visit: No Status: Acute Qualifiers: Alzheimer's disease onset: unspecified onset Qualified Code(s): G30.9 - Alzheimer's disease, unspecified; F02.81 - Dementia in other diseases classified elsewhere with behavioral disturbance Plan to address problem: Supportive care, continue Aricept, supportive care.
[2020-08-12] MEDS: risperiDONE 0.25 MG TAB PO SCH ×3 (00:34→22:43)
[2020-08-12] MEDS: traZODone 50 MG TAB PO SCH ×2 (00:34→22:48)
[2020-08-12] MEDS: OMEGA-3 FATTY ACIDS/FISH OIL 1 GRAM CAP PO SCH ×3 (00:34→22:48)
[2020-08-12] MEDS: MELATONIN 5 MG TAB PO PRN (00:34)
[2020-08-12 08:56] LABS: Basophils % (Auto) 0.5 % (0.0-1.8); Eosinophils # (Auto) 0.1 K/mm3 (0.0-0.4); Hematocrit 44.5 % (35.5-45.6); Hemoglobin 15.9 gm/dl (11.8-15.2); Lymphocytes % (Auto) 12.6 % (13.4-35.0); Mean Corpuscular HGB Conc 36 % (32-34); Mean Corpuscular Volume 92 fl (84-94); Monocytes # (Auto) 1.1 K/mm3 (0.0-0.8); Monocytes % (Auto) 13.3 % (0.0-7.3); Platelet Count 247 K/mm3 (140-440); Red Blood Count 4.82 M/mm3 (3.65-5.03); Red Cell Distribution Width 12.7 % (13.2-15.2)
[2020-08-12 09:19] LABS: Alanine Aminotransferase 43 units/L (7-56); Albumin 3.3 g/dL (3.9-5); Blood Urea Nitrogen 21 mg/dL (9-20); Calcium 9.2 mg/dL (8.4-10.2); HDL Cholesterol 55 mg/dL (40-59); Hemolysis Index 34; LDL Cholesterol,Direct 125 mg/dL (50-130)
[2020-08-12 09:26] LABS: BUN/Creatinine Ratio 30
[2020-08-12] MEDS ORDERED: NITROFURANTOIN MONOHYD/M-CRYST 100 MG CAP PO SCH (11:21)
--- NOTE | 2020-08-12 14:45 | History and Physical Report ---
GP History & Physical - History of Present Illness Date of admission: 08/11/20 Date of Examination: 08/12/20 Reason for Admission: Impaired reality testing, Psychopathology interference, Unable to care for self History of Present Illness: Per ED Provider: Per ED Note: HPI: This is an 85 yo male with hx of Alzheimer's dementia and CAD s/p CABG who presents with belligerent, violent behavior. Alzheimer's dementia diagnosis 7-8 years ago.Today he went "berzerk". He threatened to kill the neighbors. He was chasing the neighbors with stick, jose and objects. The belligerent behavior began one year ago. stated that he sounded like "a wild animal" in back of police car. Patient has threatened to harm . Patient will not take his medications. also states that patient will not shower. Patient also has a right shoulder wound. is able to crush up aspirin tablets and food. However he will not take his 1 medication for dementia consistently. Patient is hyperverbal with threatening statements full of expletives. "I will kill you. You son of a b---h." This statement was directed to the precinct police sergeant at his bedside. Patient is currently in handcuffs. HPI Pt in bed, appears sleepy but alert to verbal stimuli. unresponsive to questions. PAST PSYCHIATRIC HISTORY: Diagnoses: dementia Suicide attempts or Self-harm behavior: n/a Prior psychiatric hospitalizations: n/a Substance Abuse history: n/a Previous psychiatric medications tried: n/a Outpatient treatment: n/a PAST MEDICAL HISTORY: Dementia Family Psychiatric History: None reported or documented SOCIAL HISTORY Marital Status: Living Arrangements: n/a Employment Status: n/a Access to guns/weapons: n/a Education: n/a History of Abuse: Legal History: n/a REVIEW OF SYSTEMS ROS cannot be reliably obtained from the patient due to his mental state MENTAL STATUS EXAMINATION General Appearance and Behavior: Age appropriate, good hygiene, wearing appropriate clothes, good eye contact, uncooperative with questioning. Cooperation: Withdrawn Psychomotor Behavior: unremarkable and within normal limits Mood: Neutral Affect and affective range: Flat Thought Process:N/A Thought Content: N/A Speech: Non verbal Intellectual Functioning: N/A Suicidal Ideation: N/A l Homicidal Ideation: N/A Impulse Control: Impaired Insight and Judgment: Impaired Memory: N/A Attention: divided Orientation: Alert Diagnoses: Treatment Plan I do not belive this patient needs acute psych intervention, patient admitted by another psych provider to facility based on history provided by family. Pt has not been active or communicative. Seen by both ED provider and hospitalist whom hv not recommended imaging. If patient continues to remain somnolence for 2 more days, discharge from psych would be appropriated. Patient admitted for inpatient psychiatric evaluation, medication adjustment and close monitoring The patient's behavior, mood, sleep and appetite will be closely monitored. Patient enrolled in individual and group therapeutic sessions and encouraged to attend. Patient provided with a safe and structured environment. Patient's physical health needs will be addressed by the Hospitalist. Hospitalist Consulted Labs including CBC, CMP, Lipid profile and Hemoglobin A1C levels ordered for baseline reference Social Assessment will be completed and the Automotive Engineering Teacher will work with patient and family to ensure a suitable and safe disposition Medication adjustment will be made as clinically indicated Usual Wellness Jainism/Preservation: - Start Trazodone 50 mg po QHS & 50 mg po QHS PRN between 10 PM & 2 AM for insomnia - Start Melatonin 5 mg po QHS to promote circadian rhythm - Start [place]-3 for brain health, reduce impulsivity, and as adjunctive treatment for mood disorder, continue upon discharge given overall benefits. - Start B1 prophylaxis with 200 mg po for 5 days The patient agreed on the treatment plan, understood the risk, benefit, alternative treatment, potential consequence of no treatment, and gave informed consent. Initial Certification Inpatient psych services: I certify that the inpatient psychiatric services are required for treatment that could reasonably be expected to improve the patient's condition. Estimated days: 7 Post hospital care: primary care provider, psychiatric provider Legal Status: Other Patient Problems: Current Active Problems Cerebral atherosclerosis (Acute) Medications and Allergies Allergies Allergy/AdvReac Type Severity Reaction Status Date / Time No Known Allergies Allergy Unverified 08/12/20 00:04 Home Medications Medication Instructions Recorded Confirmed Last Taken Type AtorvaSTATin [Lipitor] 40 mg PO QHS 08/11/20 08/11/[address] [DepaKOTE DR] 125 mg PO BID 08/11/20 08/11/20 Unknown History Isosorbide Mononitrate [Isosorbide 30 mg PO DAILY 08/11/20 08/11/20 Unknown History Mononitrate ER] carvediloL [Coreg] 3.125 mg PO BID 08/11/20 08/11/20 Unknown History donepeziL [Aricept] 10 mg PO HS 08/11/20 08/11/20 Unknown History Nitrofurantoin Meagher/M-Cryst 100 mg PO Q12HR 08/12/20 08/12/20 Unknown History [Macrobid CAP] Active Meds: Active Medications Fish Oil ([place]-3 Fatty Acids/Fish Oil 1 Gram Cap) 2,000 mg PO BID [facility] Last Admin: 08/12/20 00:34 Dose: 2,000 mg Documented by: Melatonin (Melatonin 5 Mg Tab) 5 mg PO QHS PRN PRN Reason: Sleep Last Admin: 08/12/20 00:34 Dose: 5 mg Documented by: Risperidone (Risperidone 0.25 Mg Tab) 0.5 mg PO BID [facility] Last Admin: 08/12/20 00:34 Dose: 0.5 mg Documented by: Trazodone HCl (Trazodone 50 Mg Tab) 50 mg PO QHS [facility] Last Admin: 08/12/20 00:34 Dose: 50 mg Documented by: Results - Results Labs/Vitals: Laboratory Last Values WBC 8.3 K/mm3 (4.5-11.0) 08/12/20 07:59 RBC 4.82 M/mm3 (3.65-5.03) 08/12/20 07:59 Hgb 15.9 gm/dl (11.8-15.2) H 08/12/20 07:59 Hct 44.5 % (35.5-45.6) 08/12/20 07:59 MCV 92 fl (84-94) 08/12/20 07:59 MCH 33 pg (28-32) H 08/12/20 07:59 MCHC 36 % (32-34) H 08/12/20 07:59 RDW 12.7 % (13.2-15.2) L 08/12/20 07:59 Plt Count 247 K/mm3 (140-440) 08/12/20 07:59 Lymph % (Auto) 12.6 % (13.4-35.0) L 08/12/20 07:59 [place] % (Auto) 13.3 % (0.0-7.3) H 08/12/20 07:59 Eos % (Auto) 1.0 % (0.0-4.3) 08/12/20 07:59 Baso % (Auto) 0.5 % (0.0-1.8) 08/12/20 07:59 Lymph # (Auto) 1.0 K/mm3 (1.2-5.4) L 08/12/20 07:59 [place] # (Auto) 1.1 K/mm3 (0.0-0.8) H 08/12/20 07:59 Eos # (Auto) 0.1 K/mm3 (0.0-0.4) 08/12/20 07:59 Baso # (Auto) 0.0 K/mm3 (0.0-0.1) 08/12/20 07:59 Seg Neutrophils % 72.6 % (40.0-70.0) H 08/12/20 07:59 Seg Neutrophils # 6.0 K/mm3 (1.8-7.7) 08/12/20 07:59 Sodium 143 mmol/L (137-145) D 08/12/20 07:57 Potassium 3.6 mmol/L (3.6-5.0) 08/12/20 07:57 Chloride 102.8 mmol/L (98-107) 08/12/20 07:57 Carbon Dioxide 28 mmol/L (22-30) 08/12/20 07:57 Anion Gap 16 mmol/L 08/12/20 07:57 BUN 21 mg/dL (9-20) H 08/12/20 07:57 Creatinine 0.7 mg/dL (0.8-1.3) L 08/12/20 07:57 Estimated GFR > 60 ml/min 08/12/20 07:57 BUN/Creatinine Ratio 30 % 08/12/20 07:57 Glucose 128 mg/dL (75-100) H 08/12/20 07:57 POC Glucose 120 mg/dL (70-105) H 08/12/20 00:18 Calcium 9.2 mg/dL (8.4-10.2) 08/12/20 07:57 Total Bilirubin 2.30 mg/dL (0.1-1.2) H 08/12/20 07:57 AST 74 units/L (5-40) H 08/12/20 07:57 ALT 43 units/L (7-56) 08/12/20 07:57 Alkaline Phosphatase 76 units/L (35-129) 08/12/20 07:57 Total Protein 7.1 g/dL (6.3-8.2) 08/12/20 07:57 Albumin 3.3 g/dL (3.9-5) L 08/12/20 07:57 Albumin/Globulin Ratio 0.9 % 08/12/20 07:57 Triglycerides 87 mg/dL (2-149) 08/12/20 07:57 Cholesterol 193 mg/dL (50-199) 08/12/20 07:57 LDL Cholesterol Direct 125 mg/dL (50-130) 08/12/20 07:57 HDL Cholesterol 55 mg/dL (40-59) 08/12/20 07:57 Cholesterol/HDL Ratio 3.50 % 08/12/20 07:57 TSH 1.220 mlU/mL (0.270-4.200) 08/12/20 07:57 Last Vital Signs Temp 96.7 F L 08/11/20 22:00 Pulse 98 H 08/11/20 22:00 Resp 18 08/11/20 22:00 BP 146/74 08/11/20 22:00 Pulse Ox 96 08/11/20 22:00 Physical Examination - Constitutional Vitals: Vital Signs Temp Pulse Resp BP Pulse Ox 96.7 F L 98 H 18 146/74 96 08/11/20 22:00 08/11/20 22:00 08/11/20 22:00 08/11/20 22:00 08/11/20 22:00 Temperature -Last 24 Hours Temperature 96.7 F Mental Status Exam - Vital signs Last Vital Signs Temp 96.7 F L 08/11/20 22:00 Pulse 98 H 08/11/20 22:00 Resp 18 08/11/20 22:00 BP 146/74 08/11/20 22:00 Pulse Ox 96 08/11/20 22:00 Physician Certification - Certification Statement Physician Certification Statement: This is an acknowledgement statement that SHAUN VINCENT is a 85 year old M who requires inpatient psychiatric admission for treatment which could reasonably be expected to improve the patient's condition for Estimated period of time patient will need to remain in the hospital: [ ] Plan for post-hospital care: [ ]
[2020-08-12] MEDS ORDERED: ZIPRASIDONE MESYLATE 20 MG VIAL IM ONE (20:52)
[2020-08-12] MEDS: DIVALPROEX DR 125 MG TAB PO SCH (22:43)
[2020-08-12] MEDS: carvediloL 3.125 MG TAB PO SCH (22:43)
[2020-08-12] MEDS: DONEPEZIL 10 MG TAB PO SCH (22:48)
--- NOTE | 2020-08-13 10:12 | Progress Note ---
Subjective Date of service: 08/13/20 Principal diagnosis: MDD Subjective Comment: [facility] ED Nurse: Pt received in the room very restless, resistive to care due to confusion. Pt is combative as he throws punches. Noted with poor gait, forget limitation as he is always trying to get OOB. Provider SILVIA Davis notified and he ordered Geodon 5mg IM which was given with bedtime medications. Pt placed on [facility]-chair and taken to the day room and on close observation. Will continue to monitor. Psych Progress Patient seen in room this AM awake, states he is good when asked how he was doing but otherwise not answering other questions. REVIEW OF SYSTEMS ROS cannot be reliably obtained from the patient due to his mental state MENTAL STATUS EXAMINATION General Appearance and Behavior: Age appropriate, good hygiene, wearing appropriate clothes, good eye contact, uncooperative with questioning. Cooperation: Withdrawn Psychomotor Behavior: unremarkable and within normal limits Mood: good Affect and affective range: Flat Thought Process:N/A Thought Content: N/A Speech: Low volume, and rythm. Intellectual Functioning: N/A Suicidal Ideation: N/A l Homicidal Ideation: N/A Impulse Control: Impaired Insight and Judgment: Impaired Memory: N/A Attention: divided Orientation: Alert Assessment and Plan - Patient Problems (1) Alzheimer's dementia with behavioral disturbance Current Visit: No Status: Acute Treatment Plan Continue risperidone 1mg BID Patient admitted for inpatient psychiatric evaluation, medication adjustment and close monitoring The patient's behavior, mood, sleep and appetite will be closely monitored. Patient enrolled in individual and group therapeutic sessions and encouraged to attend. Patient provided with a safe and structured environment. Patient's physical health needs will be addressed by the Hospitalist. Hospitalist Consulted Labs including CBC, CMP, Lipid profile and Hemoglobin A1C levels ordered for baseline reference Social Assessment will be completed and the Chief Radiology will work with patient and family to ensure a suitable and safe disposition Medication adjustment will be made as clinically indicated Usual Wellness Nondenominational/Preservation: - Start Trazodone 50 mg po QHS & 50 mg po QHS PRN between 10 PM & 2 AM for insomnia - Start Melatonin 5 mg po QHS to promote circadian rhythm - Start [employer]-3 for brain health, reduce impulsivity, and as adjunctive treatment for mood disorder, continue upon discharge given overall benefits. - Start B1 prophylaxis with 200 mg po for 5 days The patient agreed on the treatment plan, understood the risk, benefit, alternative treatment, potential consequence of no treatment, and gave informed consent. Initial Certification Inpatient psych services: I certify that the inpatient psychiatric services are required for treatment that could reasonably be expected to improve the patient's condition. Estimated days: 6 Post hospital care: primary care provider, psychiatric provider Assessment and Plan - Patient Problems (1) Alzheimer's dementia with behavioral disturbance Current Visit: No Status: Acute Qualifiers: Alzheimer's disease onset: unspecified onset Qualified Code(s): G30.9 - Alzheimer's disease, unspecified; F02.81 - Dementia in other diseases classified elsewhere with behavioral disturbance Medications and Allergies Allergies Allergy/AdvReac Type Severity Reaction Status Date / Time No Known Allergies Allergy Unverified 08/12/20 00:04 Home Medications Medication Instructions Recorded Confirmed Last Taken Type AtorvaSTATin [Lipitor] 40 mg PO QHS 08/11/20 08/11/[address] [DepaKOTE DR] 125 mg PO BID 08/11/20 08/11/20 Unknown History Isosorbide Mononitrate [Isosorbide 30 mg PO DAILY 08/11/20 08/11/20 Unknown History Mononitrate ER] carvediloL [Coreg] 3.125 mg PO BID 08/11/20 08/11/20 Unknown History donepeziL [Aricept] 10 mg PO HS 08/11/20 08/11/20 Unknown History Nitrofurantoin Garza/M-Cryst 100 mg PO Q12HR 08/12/20 08/12/20 Unknown History [Macrobid CAP] Active Meds: Active Medications Atorvastatin Calcium (Atorvastatin 40 Mg Tab) 40 mg PO QHS [facility] Last Admin: 08/12/20 22:48 Dose: 40 mg Documented by: Carvedilol (Carvedilol 3.125 Mg Tab) 3.125 mg PO BID [facility] Last Admin: 08/12/20 22:43 Dose: 3.125 mg Documented by: Divalproex Sodium (Divalproex Dr 125 Mg Tab) 125 mg PO BID [facility] Last Admin: 08/12/20 22:43 Dose: 125 mg Documented by: Donepezil HCl (Donepezil 10 Mg Tab) 10 mg PO [facility] Last Admin: 08/12/20 22:48 Dose: 10 mg Documented by: Fish Oil ([employer] Fatty Acids/Fish Oil 1 Gram Cap) 2,000 mg PO BID [facility] Last Admin: 08/12/20 22:48 Dose: Not Given Documented by: Isosorbide Mononitrate (Isosorbide Mononitrate Er 30 Mg Tab) 30 mg PO DAILY [facility] Melatonin (Melatonin 5 Mg Tab) 5 mg PO QHS PRN PRN Reason: Sleep Last Admin: 08/12/20 00:34 Dose: 5 mg Documented by: Risperidone (Risperidone 0.25 Mg Tab) 0.5 mg PO BID [facility] Last Admin: 08/12/20 22:43 Dose: 0.5 mg Documented by: Trazodone HCl (Trazodone 50 Mg Tab) 50 mg PO QHS [facility] Last Admin: 08/12/20 22:48 Dose: 50 mg Documented by: Results - Results Labs/Vitals: Laboratory Last Values WBC 8.3 K/mm3 (4.5-11.0) 08/12/20 07:59 RBC 4.82 M/mm3 (3.65-5.03) 08/12/20 07:59 Hgb 15.9 gm/dl (11.8-15.2) H 08/12/20 07:59 Hct 44.5 % (35.5-45.6) 08/12/20 07:59 MCV 92 fl (84-94) 08/12/20 07:59 MCH 33 pg (28-32) H 08/12/20 07:59 MCHC 36 % (32-34) H 08/12/20 07:59 RDW 12.7 % (13.2-15.2) L 08/12/20 07:59 Plt Count 247 K/mm3 (140-440) 08/12/20 07:59 Lymph % (Auto) 12.6 % (13.4-35.0) L 08/12/20 07:59 Garza % (Auto) 13.3 % (0.0-7.3) H 08/12/20 07:59 Eos % (Auto) 1.0 % (0.0-4.3) 08/12/20 07:59 Baso % (Auto) 0.5 % (0.0-1.8) 08/12/20 07:59 Lymph # (Auto) 1.0 K/mm3 (1.2-5.4) L 08/12/20 07:59 Garza # (Auto) 1.1 K/mm3 (0.0-0.8) H 08/12/20 07:59 Eos # (Auto) 0.1 K/mm3 (0.0-0.4) 08/12/20 07:59 Baso # (Auto) 0.0 K/mm3 (0.0-0.1) 08/12/20 07:59 Seg Neutrophils % 72.6 % (40.0-70.0) H 08/12/20 07:59 Seg Neutrophils # 6.0 K/mm3 (1.8-7.7) 08/12/20 07:59 Sodium 143 mmol/L (137-145) D 08/12/20 07:57 Potassium 3.6 mmol/L (3.6-5.0) 08/12/20 07:57 Chloride 102.8 mmol/L (98-107) 08/12/20 07:57 Carbon Dioxide 28 mmol/L (22-30) 08/12/20 07:57 Anion Gap 16 mmol/L 08/12/20 07:57 BUN 21 mg/dL (9-20) H 08/12/20 07:57 Creatinine 0.7 mg/dL (0.8-1.3) L 08/12/20 07:57 Estimated GFR > 60 ml/min 08/12/20 07:57 BUN/Creatinine Ratio 30 % 08/12/20 07:57 Glucose 128 mg/dL (75-100) H 08/12/20 07:57 POC Glucose 120 mg/dL (70-105) H 08/12/20 00:18 Hemoglobin A1c 5.1 % (4-6) 08/12/20 07:57 Calcium 9.2 mg/dL (8.4-10.2) 08/12/20 07:57 Total Bilirubin 2.30 mg/dL (0.1-1.2) H 08/12/20 07:57 AST 74 units/L (5-40) H 08/12/20 07:57 ALT 43 units/L (7-56) 08/12/20 07:57 Alkaline Phosphatase 76 units/L (35-129) 08/12/20 07:57 Total Protein 7.1 g/dL (6.3-8.2) 08/12/20 07:57 Albumin 3.3 g/dL (3.9-5) L 08/12/20 07:57 Albumin/Globulin Ratio 0.9 % 08/12/20 07:57 Triglycerides 87 mg/dL (2-149) 08/12/20 07:57 Cholesterol 193 mg/dL (50-199) 08/12/20 07:57 LDL Cholesterol Direct 125 mg/dL (50-130) 08/12/20 07:57 HDL Cholesterol 55 mg/dL (40-59) 08/12/20 07:57 Cholesterol/HDL Ratio 3.50 % 08/12/20 07:57 TSH 1.220 mlU/mL (0.270-4.200) 08/12/20 07:57 Last Vital Signs Temp 98.6 F 08/12/20 09:58 Pulse 93 H 08/12/20 22:43 Resp 18 08/12/20 09:58 BP 122/75 08/12/20 22:43 Pulse Ox 95 08/12/20 09:58
[2020-08-13] MEDS: OMEGA-3 FATTY ACIDS/FISH OIL 1 GRAM CAP PO SCH ×2 (10:45→21:49)
[2020-08-13] MEDS: carvediloL 3.125 MG TAB PO SCH ×2 (10:46→21:52)
[2020-08-13] MEDS: DIVALPROEX DR 125 MG TAB PO SCH ×2 (10:46→21:50)
[2020-08-13] MEDS: risperiDONE 1 MG TAB PO SCH ×2 (10:47→21:49)
[2020-08-13] MEDS: risperiDONE 0.25 MG TAB PO SCH (11:08)
[2020-08-13] MEDS: DONEPEZIL 10 MG TAB PO SCH (21:50)
[2020-08-13] MEDS: traZODone 50 MG TAB PO SCH (21:50)
--- NOTE | 2020-08-14 08:55 | Progress Note ---
Subjective Date of service: 08/14/20 Principal diagnosis: MDD Subjective Comment: [facility] Nurse: Patient slept late this morning. He did not eat breakfast but ate lunch and dinner. He presents as confused and he is not easily redirected. His gait is unsteady and he does not like when staff is there for assistance. He denies si/hi. He is medication compliant. His called today to check on him. She stated his behavior becomes worse later in the day. He is displaying that behavior since being here. He likes to walk around on the unit. Psych Progress Patient in the room, seated up today, does not appear to be somnolence, with much louder tone, patient was able to respong to good morning appropriately and stated he slept well over night. Patient asked where he is, pt replied" I am here". Reason for continued inpatient hospitalization psychiatric: pt has dementia with memory issues. being managed for behavioral outburst and disturbances. Will continue to observe for mood stability due to history of sudden outburst REVIEW OF SYSTEMS ROS cannot be reliably obtained from the patient due to his mental state MENTAL STATUS EXAMINATION General Appearance and Behavior: Age appropriate, good hygiene, wearing appropriate clothes, good eye contact, uncooperative with questioning. Cooperation: Withdrawn Psychomotor Behavior: unremarkable and within normal limits Mood: good Affect and affective range: Flat Thought Process:N/A Thought Content: N/A Speech: Low volume, and rythm. Intellectual Functioning: N/A Suicidal Ideation: N/A l Homicidal Ideation: N/A Impulse Control: Impaired Insight and Judgment: Impaired Memory: N/A Attention: divided Orientation: Alert Assessment and Plan - Patient Problems (1) Alzheimer's dementia with behavioral disturbance Current Visit: No Status: Acute Treatment Plan Continue risperidone 1mg BID Patient admitted for inpatient psychiatric evaluation, medication adjustment and close monitoring The patient's behavior, mood, sleep and appetite will be closely monitored. Patient enrolled in individual and group therapeutic sessions and encouraged to attend. Patient provided with a safe and structured environment. Patient's physical health needs will be addressed by the Hospitalist. Hospitalist Consulted Labs including CBC, CMP, Lipid profile and Hemoglobin A1C levels ordered for baseline reference Social Assessment will be completed and the Hydraulic Billet Maker will work with patient and family to ensure a suitable and safe disposition Medication adjustment will be made as clinically indicated Usual Wellness Anabaptism/Preservation: - Start Trazodone 50 mg po QHS & 50 mg po QHS PRN between 10 PM & 2 AM for insomnia - Start Melatonin 5 mg po QHS to promote circadian rhythm - Start [employer]-3 for brain health, reduce impulsivity, and as adjunctive treatment for mood disorder, continue upon discharge given overall benefits. - Start B1 prophylaxis with 200 mg po for 5 days The patient agreed on the treatment plan, understood the risk, benefit, alternative treatment, potential consequence of no treatment, and gave informed consent. Initial Certification Inpatient psych services: I certify that the inpatient psychiatric services are required for treatment that could reasonably be expected to improve the patient's condition. Estimated days: 4 Post hospital care: primary care provider, psychiatric provider Assessment and Plan - Patient Problems (1) Alzheimer's dementia with behavioral disturbance Current Visit: No Status: Acute Qualifiers: Alzheimer's disease onset: unspecified onset Qualified Code(s): G30.9 - Alzheimer's disease, unspecified; F02.81 - Dementia in other diseases classified elsewhere with behavioral disturbance Medications and Allergies Allergies Allergy/AdvReac Type Severity Reaction Status Date / Time No Known Allergies Allergy Unverified 08/12/20 00:04 Home Medications Medication Instructions Recorded Confirmed Last Taken Type AtorvaSTATin [Lipitor] 40 mg PO QHS 08/11/20 08/11/20 Unknown History Divalproex [Gigi JASSO] 125 mg PO BID 08/11/20 08/11/20 Unknown History Isosorbide Mononitrate [Isosorbide 30 mg PO DAILY 08/11/20 08/11/20 Unknown History Mononitrate ER] carvediloL [Coreg] 3.125 mg PO BID 08/11/20 08/11/20 Unknown History donepeziL [Aricept] 10 mg PO HS 08/11/20 08/11/20 Unknown History Nitrofurantoin Leon/M-Cryst 100 mg PO Q12HR 08/12/20 08/12/20 Unknown History [Macrobid CAP] Active Meds: Active Medications Atorvastatin Calcium (Atorvastatin 40 Mg Tab) 40 mg PO QHS [facility] Last Admin: 08/13/20 21:50 Dose: 40 mg Documented by: Carvedilol (Carvedilol 3.125 Mg Tab) 3.125 mg PO BID [facility] Last Admin: 08/13/20 21:52 Dose: 3.125 mg Documented by: Divalproex Sodium (Divalproex Dr 125 Mg Tab) 125 mg PO BID [facility] Last Admin: 08/13/20 21:50 Dose: 125 mg Documented by: Donepezil HCl (Donepezil 10 Mg Tab) 10 mg PO HS [facility] Last Admin: 08/13/20 21:50 Dose: 10 mg Documented by: Fish Oil ([employer]-3 Fatty Acids/Fish Oil 1 Gram Cap) 2,000 mg PO BID [facility] Last Admin: 08/13/20 21:49 Dose: 2,000 mg Documented by: Isosorbide Mononitrate (Isosorbide Mononitrate Er 30 Mg Tab) 30 mg PO DAILY [facility] Last Admin: 08/13/20 10:46 Dose: 30 mg Documented by: Melatonin (Melatonin 5 Mg Tab) 5 mg PO QHS PRN PRN Reason: Sleep Last Admin: 08/12/20 00:34 Dose: 5 mg Documented by: Risperidone (Risperidone 1 Mg Tab) 1 mg PO BID [facility] Last Admin: 08/13/20 21:49 Dose: 1 mg Documented by: Trazodone HCl (Trazodone 50 Mg Tab) 50 mg PO QHS [facility] Last Admin: 08/13/20 21:50 Dose: 50 mg Documented by: Results - Results Labs/Vitals: Laboratory Last Values WBC 8.3 K/mm3 (4.5-11.0) 08/12/20 07:59 RBC 4.82 M/mm3 (3.65-5.03) 08/12/20 07:59 Hgb 15.9 gm/dl (11.8-15.2) H 08/12/20 07:59 Hct 44.5 % (35.5-45.6) 08/12/20 07:59 MCV 92 fl (84-94) 08/12/20 07:59 MCH 33 pg (28-32) H 08/12/20 07:59 MCHC 36 % (32-34) H 08/12/20 07:59 RDW 12.7 % (13.2-15.2) L 08/12/20 07:59 Plt Count 247 K/mm3 (140-440) 08/12/20 07:59 Lymph % (Auto) 12.6 % (13.4-35.0) L 08/12/20 07:59 Leon % (Auto) 13.3 % (0.0-7.3) H 08/12/20 07:59 Eos % (Auto) 1.0 % (0.0-4.3) 08/12/20 07:59 Baso % (Auto) 0.5 % (0.0-1.8) 08/12/20 07:59 Lymph # (Auto) 1.0 K/mm3 (1.2-5.4) L 08/12/20 07:59 Leon # (Auto) 1.1 K/mm3 (0.0-0.8) H 08/12/20 07:59 Eos # (Auto) 0.1 K/mm3 (0.0-0.4) 08/12/20 07:59 Baso # (Auto) 0.0 K/mm3 (0.0-0.1) 08/12/20 07:59 Seg Neutrophils % 72.6 % (40.0-70.0) H 08/12/20 07:59 Seg Neutrophils # 6.0 K/mm3 (1.8-7.7) 08/12/20 07:59 Sodium 143 mmol/L (137-145) D 08/12/20 07:57 Potassium 3.6 mmol/L (3.6-5.0) 08/12/20 07:57 Chloride 102.8 mmol/L (98-107) 08/12/20 07:57 Carbon Dioxide 28 mmol/L (22-30) 08/12/20 07:57 Anion Gap 16 mmol/L 08/12/20 07:57 BUN 21 mg/dL (9-20) H 08/12/20 07:57 Creatinine 0.7 mg/dL (0.8-1.3) L 08/12/20 07:57 Estimated GFR > 60 ml/min 08/12/20 07:57 BUN/Creatinine Ratio 30 % 08/12/20 07:57 Glucose 128 mg/dL (75-100) H 08/12/20 07:57 POC Glucose 120 mg/dL (70-105) H 08/12/20 00:18 Hemoglobin A1c 5.1 % (4-6) 08/12/20 07:57 Calcium 9.2 mg/dL (8.4-10.2) 08/12/20 07:57 Total Bilirubin 2.30 mg/dL (0.1-1.2) H 08/12/20 07:57 AST 74 units/L (5-40) H 08/12/20 07:57 ALT 43 units/L (7-56) 08/12/20 07:57 Alkaline Phosphatase 76 units/L (35-129) 08/12/20 07:57 Total Protein 7.1 g/dL (6.3-8.2) 08/12/20 07:57 Albumin 3.3 g/dL (3.9-5) L 08/12/20 07:57 Albumin/Globulin Ratio 0.9 % 08/12/20 07:57 Triglycerides 87 mg/dL (2-149) 08/12/20 07:57 Cholesterol 193 mg/dL (50-199) 08/12/20 07:57 LDL Cholesterol Direct 125 mg/dL (50-130) 08/12/20 07:57 HDL Cholesterol 55 mg/dL (40-59) 08/12/20 07:57 Cholesterol/HDL Ratio 3.50 % 08/12/20 07:57 TSH 1.220 mlU/mL (0.270-4.200) 08/12/20 07:57 Last Vital Signs Temp 97.9 F 08/13/20 19:56 Pulse 103 H 08/13/20 21:52 Resp 18 08/13/20 19:56 BP 110/62 08/13/20 21:52 Pulse Ox 82 L 08/13/20 19:56
[2020-08-14] MEDS: OMEGA-3 FATTY ACIDS/FISH OIL 1 GRAM CAP PO SCH ×2 (09:36→21:34)
[2020-08-14] MEDS: risperiDONE 1 MG TAB PO SCH ×2 (09:37→21:34)
[2020-08-14] MEDS: DIVALPROEX DR 125 MG TAB PO SCH ×2 (09:37→21:34)
[2020-08-14] MEDS: carvediloL 3.125 MG TAB PO SCH ×2 (09:37→21:33)
--- NOTE | 2020-08-14 20:05 | Progress Note ---
Assessment and Plan - Patient Problems (1) Cerebral atherosclerosis Current Visit: Yes Status: Acute Plan to address problem: Verbal prompting, Verbal redirection, benzodiazepine therapy as clinically indicated (2) Alzheimer's dementia with behavioral disturbance Current Visit: No Status: Acute Qualifiers: Alzheimer's disease onset: unspecified onset Qualified Code(s): G30.9 - Alzheimer's disease, unspecified; F02.81 - Dementia in other diseases classified elsewhere with behavioral disturbance Plan to address problem: Supportive care, continue Aricept, supportive care. History Interval history: 85 YO Male with Alzheimers Dementia with Behavioral Disturbance, Cerebral Atherosclerosis, CAD admitted to [facility] for Psychiatric stabilization. No reported nursing events. Pt has tangential thinking. Patient cooperative with therapy. Hospitalist Physical - Constitutional Vitals: Temp Pulse Resp BP Pulse Ox 97.9 F 87 18 147/77 82 L 08/13/20 19:56 08/14/20 09:37 08/13/20 19:56 08/14/20 09:37 08/13/20 19:56 General appearance: Present: no acute distress, well-nourished - EENT Eyes: Present: PERRL, EOM intact ENT: hearing decreased - Neck Neck: Present: supple - Respiratory Respiratory effort: normal Respiratory: bilateral: CTA - Cardiovascular Rhythm: regular Heart Sounds: Present: S1 & S2 - Extremities Extremities: no ischemia Peripheral Pulses: within normal limits - Abdominal General gastrointestinal: soft, non-tender, non-distended - Integumentary Integumentary: Present: clear, dry - Psychiatric Psychiatric: cooperative - Neurologic Neurologic: CNII-XII intact Results - Labs CBC & Chem 7: 08/12/20 07:59 08/12/20 07:57 Labs: Laboratory Last Values WBC 8.3 K/mm3 (4.5-11.0) 08/12/20 07:59 RBC 4.82 M/mm3 (3.65-5.03) 08/12/20 07:59 Hgb 15.9 gm/dl (11.8-15.2) H 08/12/20 07:59 Hct 44.5 % (35.5-45.6) 08/12/20 07:59 MCV 92 fl (84-94) 08/12/20 07:59 MCH 33 pg (28-32) H 08/12/20 07:59 MCHC 36 % (32-34) H 08/12/20 07:59 RDW 12.7 % (13.2-15.2) L 08/12/20 07:59 Plt Count 247 K/mm3 (140-440) 08/12/20 07:59 Lymph % (Auto) 12.6 % (13.4-35.0) L 08/12/20 07:59 [place] % (Auto) 13.3 % (0.0-7.3) H 08/12/20 07:59 Eos % (Auto) 1.0 % (0.0-4.3) 08/12/20 07:59 Baso % (Auto) 0.5 % (0.0-1.8) 08/12/20 07:59 Lymph # (Auto) 1.0 K/mm3 (1.2-5.4) L 08/12/20 07:59 Winston # (Auto) 1.1 K/mm3 (0.0-0.8) H 08/12/20 07:59 Eos # (Auto) 0.1 K/mm3 (0.0-0.4) 08/12/20 07:59 Baso # (Auto) 0.0 K/mm3 (0.0-0.1) 08/12/20 07:59 Seg Neutrophils % 72.6 % (40.0-70.0) H 08/12/20 07:59 Seg Neutrophils # 6.0 K/mm3 (1.8-7.7) 08/12/20 07:59 Sodium 143 mmol/L (137-145) D 08/12/20 07:57 Potassium 3.6 mmol/L (3.6-5.0) 08/12/20 07:57 Chloride 102.8 mmol/L (98-107) 08/12/20 07:57 Carbon Dioxide 28 mmol/L (22-30) 08/12/20 07:57 Anion Gap 16 mmol/L 08/12/20 07:57 BUN 21 mg/dL (9-20) H 08/12/20 07:57 Creatinine 0.7 mg/dL (0.8-1.3) L 08/12/20 07:57 Estimated GFR > 60 ml/min 08/12/20 07:57 BUN/Creatinine Ratio 30 % 08/12/20 07:57 Glucose 128 mg/dL (75-100) H 08/12/20 07:57 POC Glucose 120 mg/dL (70-105) H 08/12/20 00:18 Hemoglobin A1c 5.1 % (4-6) 08/12/20 07:57 Calcium 9.2 mg/dL (8.4-10.2) 08/12/20 07:57 Total Bilirubin 2.30 mg/dL (0.1-1.2) H 08/12/20 07:57 AST 74 units/L (5-40) H 08/12/20 07:57 ALT 43 units/L (7-56) 08/12/20 07:57 Alkaline Phosphatase 76 units/L (35-129) 08/12/20 07:57 Total Protein 7.1 g/dL (6.3-8.2) 08/12/20 07:57 Albumin 3.3 g/dL (3.9-5) L 08/12/20 07:57 Albumin/Globulin Ratio 0.9 % 08/12/20 07:57 Triglycerides 87 mg/dL (2-149) 08/12/20 07:57 Cholesterol 193 mg/dL (50-199) 08/12/20 07:57 LDL Cholesterol Direct 125 mg/dL (50-130) 08/12/20 07:57 HDL Cholesterol 55 mg/dL (40-59) 08/12/20 07:57 Cholesterol/HDL Ratio 3.50 % 08/12/20 07:57 TSH 1.220 mlU/mL (0.270-4.200) 08/12/20 07:57 Temple/IV: Voiding Method Toilet Active Medications - Current Medications Current Medications: Generic Name Dose Route Start Last Admin Trade Name Freq PRN Reason Stop Dose Admin Atorvastatin Calcium 40 mg 08/12/20 22:00 08/13/20 21:50 Atorvastatin 40 Mg Tab PO 40 mg QHS RENITA Administration Carvedilol 3.125 mg 08/12/20 22:00 08/14/20 09:37 Carvedilol 3.125 Mg Tab PO 3.125 mg BID RENITA Administration Divalproex Sodium 125 mg 08/12/20 22:00 08/14/20 09:[address] 125 Mg Tab PO 125 mg BID RENITA Administration Donepezil HCl 10 mg 08/12/20 22:00 08/13/20 21:50 Donepezil 10 Mg Tab PO 10 mg HS RENITA Administration Fish Oil 2,000 mg 08/11/20 22:00 08/14/20 09:36 [employer]-3 Fatty Acids/Fish Oil 1 Gram Cap PO 2,000 mg BID RENITA Administration Isosorbide Mononitrate 30 mg 08/13/20 10:00 08/14/20 09:37 Isosorbide Mononitrate Er 30 Mg Tab PO 30 mg DAILY RENITA Administration Melatonin 5 mg 08/11/20 13:33 08/12/20 00:34 Melatonin 5 Mg Tab PO 5 mg QHS PRN Administration Sleep Risperidone 1 mg 08/13/20 10:00 08/14/20 09:37 Risperidone 1 Mg Tab PO 1 mg BID RENITA Administration Trazodone HCl 50 mg 08/11/20 22:00 08/13/20 21:50 Trazodone 50 Mg Tab PO 50 mg QHS RENITA Administration
[2020-08-14] MEDS: DONEPEZIL 10 MG TAB PO SCH (21:33)
[2020-08-14] MEDS: traZODone 50 MG TAB PO SCH (21:34)
[2020-08-14] MEDS: MELATONIN 5 MG TAB PO PRN (21:34)
--- NOTE | 2020-08-15 08:51 | Progress Note ---
Subjective Date of service: 08/15/20 Principal diagnosis: MDD Subjective Comment: PEr Nurse:Last evening the patient continued with 1:1 staff. He is observed taking his clothes off and trying to put them back on. He is unable to follow direction about staying seated unless staff is with him. He presents as having no impulse control. When being assisted putting his clothes back on he becomes combative with the care. His appetite is poor. He was medication compliant by putting them in applesauce. Overnight the patient rested quietly. He slept 8 hours. Will continue to monitor patient for safety. Psych Progress Patient in room sleeping, sitter at bedside for 1:1 observation due to fall risk and pt always attempt to get out of bed by self Reason for continued inpatient hospitalization psychiatric: pt has dementia with memory issues. being managed for behavioral outburst and disturbances. Will continue to observe for mood stability due to history of sudden outburst REVIEW OF SYSTEMS ROS cannot be reliably obtained from the patient due to his mental state MENTAL STATUS EXAMINATION General Appearance and Behavior: Age appropriate, good hygiene, wearing appropriate clothes, good eye contact, uncooperative with questioning. Cooperation: Withdrawn Psychomotor Behavior: unremarkable and within normal limits Mood: good Affect and affective range: Flat Thought Process:N/A Thought Content: N/A Speech: Low volume, and rythm. Intellectual Functioning: N/A Suicidal Ideation: N/A l Homicidal Ideation: N/A Impulse Control: Impaired Insight and Judgment: Impaired Memory: N/A Attention: divided Orientation: Alert Assessment and Plan - Patient Problems (1) Alzheimer's dementia with behavioral disturbance Current Visit: No Status: Acute Treatment Plan Continue risperidone 1mg BID Patient admitted for inpatient psychiatric evaluation, medication adjustment and close monitoring The patient's behavior, mood, sleep and appetite will be closely monitored. Patient enrolled in individual and group therapeutic sessions and encouraged to attend. Patient provided with a safe and structured environment. Patient's physical health needs will be addressed by the Hospitalist. Hospitalist Consulted Labs including CBC, CMP, Lipid profile and Hemoglobin A1C levels ordered for baseline reference Social Assessment will be completed and the Senior Talent Acquisition Specialist will work with patient and family to ensure a suitable and safe disposition Medication adjustment will be made as clinically indicated Usual Wellness [facility]: - Start Trazodone 50 mg po QHS & 50 mg po QHS PRN between 10 PM & 2 AM for insomnia - Start Melatonin 5 mg po QHS to promote circadian rhythm - Start [place]-3 for brain health, reduce impulsivity, and as adjunctive treatment for mood disorder, continue upon discharge given overall benefits. - Start B1 prophylaxis with 200 mg po for 5 days The patient agreed on the treatment plan, understood the risk, benefit, alternative treatment, potential consequence of no treatment, and gave informed consent. Initial Certification Inpatient psych services: I certify that the inpatient psychiatric services are required for treatment that could reasonably be expected to improve the patient's condition. Estimated days: 3 Post hospital care: primary care provider, psychiatric provider Assessment and Plan - Patient Problems (1) Alzheimer's dementia with behavioral disturbance Current Visit: No Status: Acute Qualifiers: Alzheimer's disease onset: unspecified onset Qualified Code(s): G30.9 - Alzheimer's disease, unspecified; F02.81 - Dementia in other diseases classified elsewhere with behavioral disturbance Medications and Allergies Allergies Allergy/AdvReac Type Severity Reaction Status Date / Time No Known Allergies Allergy Unverified 08/12/20 00:04 Home Medications Medication Instructions Recorded Confirmed Last Taken Type AtorvaSTATin [Lipitor] 40 mg PO QHS 08/11/20 08/11/[address] [DepaKOTE DR] 125 mg PO BID 08/11/20 08/11/20 Unknown History Isosorbide Mononitrate [Isosorbide 30 mg PO DAILY 08/11/20 08/11/20 Unknown History Mononitrate ER] carvediloL [Coreg] 3.125 mg PO BID 08/11/20 08/11/20 Unknown History donepeziL [Aricept] 10 mg PO HS 08/11/20 08/11/20 Unknown History Nitrofurantoin [place]/M-Cryst 100 mg PO Q12HR 08/12/20 08/12/20 Unknown History [Macrobid CAP] Active Meds: Active Medications Atorvastatin Calcium (Atorvastatin 40 Mg Tab) 40 mg PO QHS [facility] Last Admin: 08/14/20 21:34 Dose: 40 mg Documented by: Carvedilol (Carvedilol 3.125 Mg Tab) 3.125 mg PO BID [facility] Last Admin: 08/14/20 21:33 Dose: 3.125 mg Documented by: Divalproex Sodium (Divalproex Dr 125 Mg Tab) 125 mg PO BID [facility] Last Admin: 08/14/20 21:34 Dose: 125 mg Documented by: Donepezil HCl (Donepezil 10 Mg Tab) 10 mg PO HS [facility] Last Admin: 08/14/20 21:33 Dose: 10 mg Documented by: Fish Oil ([place]-3 Fatty Acids/Fish Oil 1 Gram Cap) 2,000 mg PO BID [facility] Last Admin: 08/14/20 21:34 Dose: 2,000 mg Documented by: Isosorbide Mononitrate (Isosorbide Mononitrate Er 30 Mg Tab) 30 mg PO DAILY [facility] Last Admin: 08/14/20 09:37 Dose: 30 mg Documented by: Melatonin (Melatonin 5 Mg Tab) 5 mg PO QHS PRN PRN Reason: Sleep Last Admin: 08/14/20 21:34 Dose: 5 mg Documented by: Risperidone (Risperidone 1 Mg Tab) 1 mg PO BID [facility] Last Admin: 08/14/20 21:34 Dose: 1 mg Documented by: Trazodone HCl (Trazodone 50 Mg Tab) 50 mg PO QHS [facility] Last Admin: 08/14/20 21:34 Dose: 50 mg Documented by: Results - Results Labs/Vitals: Laboratory Last Values WBC 8.3 K/mm3 (4.5-11.0) 08/12/20 07:59 RBC 4.82 M/mm3 (3.65-5.03) 08/12/20 07:59 Hgb 15.9 gm/dl (11.8-15.2) H 08/12/20 07:59 Hct 44.5 % (35.5-45.6) 08/12/20 07:59 MCV 92 fl (84-94) 08/12/20 07:59 MCH 33 pg (28-32) H 08/12/20 07:59 MCHC 36 % (32-34) H 08/12/20 07:59 RDW 12.7 % (13.2-15.2) L 08/12/20 07:59 Plt Count 247 K/mm3 (140-440) 08/12/20 07:59 Lymph % (Auto) 12.6 % (13.4-35.0) L 08/12/20 07:59 [place] % (Auto) 13.3 % (0.0-7.3) H 08/12/20 07:59 Eos % (Auto) 1.0 % (0.0-4.3) 08/12/20 07:59 Baso % (Auto) 0.5 % (0.0-1.8) 08/12/20 07:59 Lymph # (Auto) 1.0 K/mm3 (1.2-5.4) L 08/12/20 07:59 [place] # (Auto) 1.1 K/mm3 (0.0-0.8) H 08/12/20 07:59 Eos # (Auto) 0.1 K/mm3 (0.0-0.4) 08/12/20 07:59 Baso # (Auto) 0.0 K/mm3 (0.0-0.1) 08/12/20 07:59 Seg Neutrophils % 72.6 % (40.0-70.0) H 08/12/20 07:59 Seg Neutrophils # 6.0 K/mm3 (1.8-7.7) 08/12/20 07:59 Sodium 143 mmol/L (137-145) D 08/12/20 07:57 Potassium 3.6 mmol/L (3.6-5.0) 08/12/20 07:57 Chloride 102.8 mmol/L (98-107) 08/12/20 07:57 Carbon Dioxide 28 mmol/L (22-30) 08/12/20 07:57 Anion Gap 16 mmol/L 08/12/20 07:57 BUN 21 mg/dL (9-20) H 08/12/20 07:57 Creatinine 0.7 mg/dL (0.8-1.3) L 08/12/20 07:57 Estimated GFR > 60 ml/min 08/12/20 07:57 BUN/Creatinine Ratio 30 % 08/12/20 07:57 Glucose 128 mg/dL (75-100) H 08/12/20 07:57 POC Glucose 120 mg/dL (70-105) H 08/12/20 00:18 Hemoglobin A1c 5.1 % (4-6) 08/12/20 07:57 Calcium 9.2 mg/dL (8.4-10.2) 08/12/20 07:57 Total Bilirubin 2.30 mg/dL (0.1-1.2) H 08/12/20 07:57 AST 74 units/L (5-40) H 08/12/20 07:57 ALT 43 units/L (7-56) 08/12/20 07:57 Alkaline Phosphatase 76 units/L (35-129) 08/12/20 07:57 Total Protein 7.1 g/dL (6.3-8.2) 08/12/20 07:57 Albumin 3.3 g/dL (3.9-5) L 08/12/20 07:57 Albumin/Globulin Ratio 0.9 % 08/12/20 07:57 Triglycerides 87 mg/dL (2-149) 08/12/20 07:57 Cholesterol 193 mg/dL (50-199) 08/12/20 07:57 LDL Cholesterol Direct 125 mg/dL (50-130) 08/12/20 07:57 HDL Cholesterol 55 mg/dL (40-59) 08/12/20 07:57 Cholesterol/HDL Ratio 3.50 % 08/12/20 07:57 TSH 1.220 mlU/mL (0.270-4.200) 08/12/20 07:57 Last Vital Signs Temp 98.3 F 08/14/20 22:00 Pulse 88 08/14/20 22:00 Resp 20 08/14/20 22:00 BP 159/84 08/14/20 22:00 Pulse Ox 98 08/14/20 22:00
[2020-08-15] MEDS: DIVALPROEX DR 125 MG TAB PO SCH ×2 (12:13→21:45)
[2020-08-15] MEDS: risperiDONE 1 MG TAB PO SCH ×2 (12:13→21:45)
[2020-08-15] MEDS: OMEGA-3 FATTY ACIDS/FISH OIL 1 GRAM CAP PO SCH ×2 (12:50→21:45)
[2020-08-15] MEDS: carvediloL 3.125 MG TAB PO SCH ×2 (12:55→21:35)
[2020-08-15] MEDS: DONEPEZIL 10 MG TAB PO SCH (21:45)
[2020-08-15] MEDS: traZODone 50 MG TAB PO SCH (21:45)
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
[2020-08-16] MEDS: risperiDONE 1 MG TAB PO SCH ×2 (12:23→21:28)
[2020-08-16] MEDS: DIVALPROEX DR 125 MG TAB PO SCH ×2 (12:24→21:26)
[2020-08-16] MEDS: OMEGA-3 FATTY ACIDS/FISH OIL 1 GRAM CAP PO SCH ×2 (12:26→21:26)
[2020-08-16] MEDS: carvediloL 3.125 MG TAB PO SCH ×2 (12:26→21:28)
[2020-08-16] MEDS: DONEPEZIL 10 MG TAB PO SCH (21:27)
[2020-08-16] MEDS: traZODone 50 MG TAB PO SCH (21:28)
--- NOTE | 2020-08-17 09:28 | Progress Note ---
Subjective Date of service: 08/17/20 Principal diagnosis: MDD Subjective Comment: PEr Nurse:Pt has been alert, restless and trying to climb out of the iker-chair. Pt has very unsteady gait and is unable to ambulate w/o max assistance. pt has been compliant w/ meds. Due to confusion, pt requires feeding assistance from staff, appetite is poor. pt has been aggressive w/ ADL's, he has been hitting and kicking at staff. pt requires 1:1 monitoring to maintain his safety. Psych Progress Patient in room with sitter at bed side, alerts to verbal stimulus but makes incomprehensible sentences. Reason for continued inpatient hospitalization psychiatric: pt has dementia with memory issues. being managed for behavioral outburst and disturbances. Will continue to observe for mood stability due to history of sudden outburst REVIEW OF SYSTEMS ROS cannot be reliably obtained from the patient due to his mental state MENTAL STATUS EXAMINATION General Appearance and Behavior: Age appropriate, good hygiene, wearing appropriate clothes, uncooperative irritable with questioning. Cooperation: Withdrawn Psychomotor Behavior: Psychomotor agitation Mood: "mumbling" Affect and affective range: Euthymic Thought Process: Tangential, loose associattion Thought Content: Paranoid and confused Speech: low volumbe, mumbling voice, Intellectual Functioning: Poor Suicidal Ideation: N/A Homicidal Ideation: N/A Impulse Control: Unimpaired Insight and Judgment: Impaired Memory: memory impaired Attention:Distractible, Orientation: Alert, but disoriented and confused Assessment and Plan - Patient Problems (1) Alzheimer's dementia with behavioral disturbance Current Visit: No Status: Acute Treatment Plan Continue risperidone 1mg BID Patient admitted for inpatient psychiatric evaluation, medication adjustment and close monitoring The patient's behavior, mood, sleep and appetite will be closely monitored. Patient enrolled in individual and group therapeutic sessions and encouraged to attend. Patient provided with a safe and structured environment. Patient's physical health needs will be addressed by the Hospitalist. Hospitalist Consulted Labs including CBC, CMP, Lipid profile and Hemoglobin A1C levels ordered for baseline reference Social Assessment will be completed and the Tripe Cooker will work with patient and family to ensure a suitable and safe disposition Medication adjustment will be made as clinically indicated Usual Wellness [facility]/Preservation: - Start Trazodone 50 mg po QHS & 50 mg po QHS PRN between 10 PM & 2 AM for insomnia - Start Melatonin 5 mg po QHS to promote circadian rhythm - Start [place]-3 for brain health, reduce impulsivity, and as adjunctive treatment for mood disorder, continue upon discharge given overall benefits. - Start B1 prophylaxis with 200 mg po for 5 days The patient agreed on the treatment plan, understood the risk, benefit, alternative treatment, potential consequence of no treatment, and gave informed consent. Initial Certification Inpatient psych services: I certify that the inpatient psychiatric services are required for treatment that could reasonably be expected to improve the patient's condition. Estimated days: 3 Post hospital care: primary care provider, psychiatric provider Assessment and Plan - Patient Problems (1) Alzheimer's dementia with behavioral disturbance Current Visit: No Status: Acute Qualifiers: Alzheimer's disease onset: unspecified onset Qualified Code(s): G30.9 - Alzheimer's disease, unspecified; F02.81 - Dementia in other diseases classified elsewhere with behavioral disturbance Medications and Allergies Allergies Allergy/AdvReac Type Severity Reaction Status Date / Time No Known Allergies Allergy Unverified 08/12/20 00:04 Home Medications Medication Instructions Recorded Confirmed Last Taken Type AtorvaSTATin [Lipitor] 40 mg PO QHS 08/11/20 08/11/[address] [DepaKOTE DR] 125 mg PO BID 08/11/20 08/11/20 Unknown History Isosorbide Mononitrate [Isosorbide 30 mg PO DAILY 08/11/20 08/11/20 Unknown History Mononitrate ER] carvediloL [Coreg] 3.125 mg PO BID 08/11/20 08/11/20 Unknown History donepeziL [Aricept] 10 mg PO HS 08/11/20 08/11/20 Unknown History Nitrofurantoin [facility]/M-Cryst 100 mg PO Q12HR 08/12/20 08/12/20 Unknown History [Macrobid CAP] Active Meds: Active Medications Atorvastatin Calcium (Atorvastatin 40 Mg Tab) 40 mg PO QHS [facility] Last Admin: 08/16/20 21:27 Dose: 40 mg Documented by: Carvedilol (Carvedilol 3.125 Mg Tab) 3.125 mg PO BID [facility] Last Admin: 08/16/20 21:28 Dose: 3.125 mg Documented by: Divalproex Sodium (Divalproex Dr 125 Mg Tab) 125 mg PO BID [facility] Last Admin: 08/16/20 21:26 Dose: 125 mg Documented by: Donepezil HCl (Donepezil 10 Mg Tab) 10 mg PO HS [facility] Last Admin: 08/16/20 21:27 Dose: 10 mg Documented by: Fish Oil ([place]-3 Fatty Acids/Fish Oil 1 Gram Cap) 2,000 mg PO BID [facility] Last Admin: 08/16/20 21:26 Dose: 2,000 mg Documented by: Isosorbide Mononitrate (Isosorbide Mononitrate Er 30 Mg Tab) 30 mg PO DAILY [facility] Last Admin: 08/16/20 12:25 Dose: 30 mg Documented by: Melatonin (Melatonin 5 Mg Tab) 5 mg PO QHS PRN PRN Reason: Sleep Last Admin: 08/14/20 21:34 Dose: 5 mg Documented by: Risperidone (Risperidone 1 Mg Tab) 1 mg PO BID [facility] Last Admin: 08/16/20 21:28 Dose: 1 mg Documented by: Trazodone HCl (Trazodone 50 Mg Tab) 50 mg PO QHS [facility] Last Admin: 08/16/20 21:28 Dose: 50 mg Documented by: Results - Results Labs/Vitals: Laboratory Last Values WBC 8.3 K/mm3 (4.5-11.0) 08/12/20 07:59 RBC 4.82 M/mm3 (3.65-5.03) 08/12/20 07:59 Hgb 15.9 gm/dl (11.8-15.2) H 08/12/20 07:59 Hct 44.5 % (35.5-45.6) 08/12/20 07:59 MCV 92 fl (84-94) 08/12/20 07:59 MCH 33 pg (28-32) H 08/12/20 07:59 MCHC 36 % (32-34) H 08/12/20 07:59 RDW 12.7 % (13.2-15.2) L 08/12/20 07:59 Plt Count 247 K/mm3 (140-440) 08/12/20 07:59 Lymph % (Auto) 12.6 % (13.4-35.0) L 08/12/20 07:59 [facility] % (Auto) 13.3 % (0.0-7.3) H 08/12/20 07:59 Eos % (Auto) 1.0 % (0.0-4.3) 08/12/20 07:59 Baso % (Auto) 0.5 % (0.0-1.8) 08/12/20 07:59 Lymph # (Auto) 1.0 K/mm3 (1.2-5.4) L 08/12/20 07:59 [facility] # (Auto) 1.1 K/mm3 (0.0-0.8) H 08/12/20 07:59 Eos # (Auto) 0.1 K/mm3 (0.0-0.4) 08/12/20 07:59 Baso # (Auto) 0.0 K/mm3 (0.0-0.1) 08/12/20 07:59 Seg Neutrophils % 72.6 % (40.0-70.0) H 08/12/20 07:59 Seg Neutrophils # 6.0 K/mm3 (1.8-7.7) 08/12/20 07:59 Sodium 143 mmol/L (137-145) D 08/12/20 07:57 Potassium 3.6 mmol/L (3.6-5.0) 08/12/20 07:57 Chloride 102.8 mmol/L (98-107) 08/12/20 07:57 Carbon Dioxide 28 mmol/L (22-30) 08/12/20 07:57 Anion Gap 16 mmol/L 08/12/20 07:57 BUN 21 mg/dL (9-20) H 08/12/20 07:57 Creatinine 0.7 mg/dL (0.8-1.3) L 08/12/20 07:57 Estimated GFR > 60 ml/min 08/12/20 07:57 BUN/Creatinine Ratio 30 % 08/12/20 07:57 Glucose 128 mg/dL (75-100) H 08/12/20 07:57 POC Glucose 120 mg/dL (70-105) H 08/12/20 00:18 Hemoglobin A1c 5.1 % (4-6) 08/12/20 07:57 Calcium 9.2 mg/dL (8.4-10.2) 08/12/20 07:57 Total Bilirubin 2.30 mg/dL (0.1-1.2) H 08/12/20 07:57 AST 74 units/L (5-40) H 08/12/20 07:57 ALT 43 units/L (7-56) 08/12/20 07:57 Alkaline Phosphatase 76 units/L (35-129) 08/12/20 07:57 Total Protein 7.1 g/dL (6.3-8.2) 08/12/20 07:57 Albumin 3.3 g/dL (3.9-5) L 08/12/20 07:57 Albumin/Globulin Ratio 0.9 % 08/12/20 07:57 Triglycerides 87 mg/dL (2-149) 08/12/20 07:57 Cholesterol 193 mg/dL (50-199) 08/12/20 07:57 LDL Cholesterol Direct 125 mg/dL (50-130) 08/12/20 07:57 HDL Cholesterol 55 mg/dL (40-59) 08/12/20 07:57 Cholesterol/HDL Ratio 3.50 % 08/12/20 07:57 TSH 1.220 mlU/mL (0.270-4.200) 08/12/20 07:57 Last Vital Signs Temp 98.2 F 08/16/20 22:00 Pulse 88 08/16/20 22:00 Resp 18 08/16/20 22:00 BP 152/70 08/16/20 22:00 Pulse Ox 95 08/16/20 22:00
[2020-08-17] MEDS: DIVALPROEX DR 125 MG TAB PO SCH ×2 (10:18→22:36)
[2020-08-17] MEDS: carvediloL 3.125 MG TAB PO SCH ×2 (10:18→22:36)
[2020-08-17] MEDS: risperiDONE 1 MG TAB PO SCH ×2 (10:18→22:36)
[2020-08-17] MEDS: OMEGA-3 FATTY ACIDS/FISH OIL 1 GRAM CAP PO SCH ×2 (10:30→22:39)
[2020-08-17] MEDS: DONEPEZIL 10 MG TAB PO SCH (22:36)
[2020-08-17] MEDS: traZODone 50 MG TAB PO SCH (22:38)
--- NOTE | 2020-08-18 09:09 | Progress Note ---
Subjective Date of service: 08/18/20 Principal diagnosis: MDD Subjective Comment: The patient was seen today, he is confused and unable to engage in interview. The patient mumbles and drifts back to sleep frequently when trying to arouse him. Reason for continued inpatient hospitalization psychiatric: pt has dementia with memory issues. being managed for behavioral outburst and disturbances. Will continue to observe for mood stability due to history of sudden outburst REVIEW OF SYSTEMS ROS cannot be reliably obtained from the patient due to his mental state MENTAL STATUS EXAMINATION Unable to obtain Assessment and Plan (1) Alzheimer's dementia with behavioral disturbance Current Visit: No Status: Acute Treatment Plan Patient admitted for inpatient psychiatric evaluation, medication adjustment and close monitoring The patient's behavior, mood, sleep and appetite will be closely monitored. Patient enrolled in individual and group therapeutic sessions and encouraged to attend. Patient provided with a safe and structured environment. Patient's physical health needs will be addressed by the Hospitalist. Hospitalist Consulted Labs including CBC, CMP, Lipid profile and Hemoglobin A1C levels ordered for baseline reference Social Assessment will be completed and the End Maker will work with phani ent and family to ensure a suitable and safe disposition Medication adjustment will be made as clinically indicated Increased Depakote 125mg po TID Usual Wellness Congregational/Preservation: - Start Trazodone 50 mg po QHS & 50 mg po QHS PRN between 10 PM & 2 AM for insomnia - Start Melatonin 5 mg po QHS to promote circadian rhythm - Start [place]-3 for brain health, reduce impulsivity, and as adjunctive treatment for mood disorder, continue upon discharge given overall benefits. - Start B1 prophylaxis with 200 mg po for 5 days The patient agreed on the treatment plan, understood the risk, benefit, alternative treatment, potential consequence of no treatment, and gave informed consent. Estimated days: 3 Post hospital care: primary care provider, psychiatric provider Medications and Allergies Allergies Allergy/AdvReac Type Severity Reaction Status Date / Time No Known Allergies Allergy Unverified 08/12/20 00:04 Home Medications Medication Instructions Recorded Confirmed Last Taken Type AtorvaSTATin [Lipitor] 40 mg PO QHS 08/11/20 08/11/[address] [DepaKOTE DR] 125 mg PO BID 08/11/20 08/11/20 Unknown History Isosorbide Mononitrate [Isosorbide 30 mg PO DAILY 08/11/20 08/11/20 Unknown History Mononitrate ER] carvediloL [Coreg] 3.125 mg PO BID 08/11/20 08/11/20 Unknown History donepeziL [Aricept] 10 mg PO HS 08/11/20 08/11/20 Unknown History Nitrofurantoin [place]/M-Cryst 100 mg PO Q12HR 08/12/20 08/12/20 Unknown History [Macrobid CAP] Active Meds: Active Medications Atorvastatin Calcium (Atorvastatin 40 Mg Tab) 40 mg PO QHS [facility] Last Admin: 08/17/20 22:36 Dose: 40 mg Documented by: Carvedilol (Carvedilol 3.125 Mg Tab) 3.125 mg PO BID [facility] Last Admin: 08/17/20 22:36 Dose: 3.125 mg Documented by: Divalproex Sodium (Divalproex Dr 125 Mg Tab) 125 mg PO BID [facility] Last Admin: 08/17/20 22:36 Dose: 125 mg Documented by: Donepezil HCl (Donepezil 10 Mg Tab) 10 mg PO HS [facility] Last Admin: 08/17/20 22:36 Dose: 10 mg Documented by: Fish Oil ([place]-3 Fatty Acids/Fish Oil 1 Gram Cap) 2,000 mg PO BID [facility] Last Admin: 08/17/20 22:39 Dose: 2,000 mg Documented by: Isosorbide Mononitrate (Isosorbide Mononitrate Er 30 Mg Tab) 30 mg PO DAILY [facility] Last Admin: 08/17/20 10:42 Dose: 30 mg Documented by: Melatonin (Melatonin 5 Mg Tab) 5 mg PO QHS PRN PRN Reason: Sleep Last Admin: 08/14/20 21:34 Dose: 5 mg Documented by: Risperidone (Risperidone 1 Mg Tab) 1 mg PO BID [facility] Last Admin: 08/17/20 22:36 Dose: 1 mg Documented by: Trazodone HCl (Trazodone 50 Mg Tab) 50 mg PO QHS [facility] Last Admin: 08/17/20 22:38 Dose: 50 mg Documented by: Results - Results Labs/Vitals: Laboratory Last Values WBC 8.3 K/mm3 (4.5-11.0) 08/12/20 07:59 RBC 4.82 M/mm3 (3.65-5.03) 08/12/20 07:59 Hgb 15.9 gm/dl (11.8-15.2) H 08/12/20 07:59 Hct 44.5 % (35.5-45.6) 08/12/20 07:59 MCV 92 fl (84-94) 08/12/20 07:59 MCH 33 pg (28-32) H 08/12/20 07:59 MCHC 36 % (32-34) H 08/12/20 07:59 RDW 12.7 % (13.2-15.2) L 08/12/20 07:59 Plt Count 247 K/mm3 (140-440) 08/12/20 07:59 Lymph % (Auto) 12.6 % (13.4-35.0) L 08/12/20 07:59 [place] % (Auto) 13.3 % (0.0-7.3) H 08/12/20 07:59 Eos % (Auto) 1.0 % (0.0-4.3) 08/12/20 07:59 Baso % (Auto) 0.5 % (0.0-1.8) 08/12/20 07:59 Lymph # (Auto) 1.0 K/mm3 (1.2-5.4) L 08/12/20 07:59 [place] # (Auto) 1.1 K/mm3 (0.0-0.8) H 08/12/20 07:59 Eos # (Auto) 0.1 K/mm3 (0.0-0.4) 08/12/20 07:59 Baso # (Auto) 0.0 K/mm3 (0.0-0.1) 08/12/20 07:59 Seg Neutrophils % 72.6 % (40.0-70.0) H 08/12/20 07:59 Seg Neutrophils # 6.0 K/mm3 (1.8-7.7) 08/12/20 07:59 Sodium 143 mmol/L (137-145) D 08/12/20 07:57 Potassium 3.6 mmol/L (3.6-5.0) 08/12/20 07:57 Chloride 102.8 mmol/L (98-107) 08/12/20 07:57 Carbon Dioxide 28 mmol/L (22-30) 08/12/20 07:57 Anion Gap 16 mmol/L 08/12/20 07:57 BUN 21 mg/dL (9-20) H 08/12/20 07:57 Creatinine 0.7 mg/dL (0.8-1.3) L 08/12/20 07:57 Estimated GFR > 60 ml/min 08/12/20 07:57 BUN/Creatinine Ratio 30 % 08/12/20 07:57 Glucose 128 mg/dL (75-100) H 08/12/20 07:57 POC Glucose 120 mg/dL (70-105) H 08/12/20 00:18 Hemoglobin A1c 5.1 % (4-6) 08/12/20 07:57 Calcium 9.2 mg/dL (8.4-10.2) 08/12/20 07:57 Total Bilirubin 2.30 mg/dL (0.1-1.2) H 08/12/20 07:57 AST 74 units/L (5-40) H 08/12/20 07:57 ALT 43 units/L (7-56) 08/12/20 07:57 Alkaline Phosphatase 76 units/L (35-129) 08/12/20 07:57 Total Protein 7.1 g/dL (6.3-8.2) 08/12/20 07:57 Albumin 3.3 g/dL (3.9-5) L 08/12/20 07:57 Albumin/Globulin Ratio 0.9 % 08/12/20 07:57 Triglycerides 87 mg/dL (2-149) 08/12/20 07:57 Cholesterol 193 mg/dL (50-199) 08/12/20 07:57 LDL Cholesterol Direct 125 mg/dL (50-130) 08/12/20 07:57 HDL Cholesterol 55 mg/dL (40-59) 08/12/20 07:57 Cholesterol/HDL Ratio 3.50 % 08/12/20 07:57 TSH 1.220 mlU/mL (0.270-4.200) 08/12/20 07:57 Last Vital Signs Temp 98.2 F 08/17/20 08:40 Pulse 102 H 08/17/20 22:36 Resp 18 08/17/20 08:40 BP 128/85 08/17/20 22:36 Pulse Ox 98 08/17/20 08:40
[2020-08-18] MEDS: carvediloL 3.125 MG TAB PO SCH ×2 (12:52→21:34)
[2020-08-18] MEDS: OMEGA-3 FATTY ACIDS/FISH OIL 1 GRAM CAP PO SCH ×2 (12:53→21:35)
[2020-08-18] MEDS: risperiDONE 1 MG TAB PO SCH ×2 (12:53→21:34)
[2020-08-18] MEDS: DIVALPROEX DR 125 MG TAB PO SCH ×2 (14:54→19:56)
[2020-08-18] MEDS: DONEPEZIL 10 MG TAB PO SCH (21:34)
[2020-08-18] MEDS: MELATONIN 5 MG TAB PO PRN (21:35)
[2020-08-18] MEDS: traZODone 50 MG TAB PO SCH (21:35)
[2020-08-19] MEDS: DIVALPROEX DR 125 MG TAB PO SCH (08:50)
[2020-08-19] MEDS: risperiDONE 1 MG TAB PO SCH ×2 (09:31→22:13)
[2020-08-19] MEDS: carvediloL 3.125 MG TAB PO SCH ×2 (09:39→22:14)
[2020-08-19] MEDS: OMEGA-3 FATTY ACIDS/FISH OIL 1 GRAM CAP PO SCH ×2 (09:40→22:14)
--- NOTE | 2020-08-19 10:58 | Progress Note ---
Subjective Date of service: 08/19/20 Principal diagnosis: MDD Subjective Comment: The patient was seen today, he is confused and unable to engage in interview. When asking him how he was feeling he states "I don't know." He also says "I don't know" when asking him if he slept well. Reason for continued inpatient hospitalization psychiatric: pt has dementia with memory issues. being managed for behavioral outburst and disturbances. Will continue to observe for mood stability due to history of sudden outburst REVIEW OF SYSTEMS ROS cannot be reliably obtained from the patient due to his mental state MENTAL STATUS EXAMINATION Unable to obtain Assessment and Plan (1) Alzheimer's dementia with behavioral disturbance Current Visit: No Status: Acute Treatment Plan Patient admitted for inpatient psychiatric evaluation, medication adjustment and close monitoring The patient's behavior, mood, sleep and appetite will be closely monitored. Patient enrolled in individual and group therapeutic sessions and encouraged to attend. Patient provided with a safe and structured environment. Patient's physical health needs will be addressed by the Hospitalist. Hospitalist Consulted Labs including CBC, CMP, Lipid profile and Hemoglobin A1C levels ordered for baseline reference Social Assessment will be completed and the Cost Estimator will work with patient and family to ensure a suitable and safe disposition Medication adjustment will be made as clinically indicated Increased Depakote 125mg po TID yesterday Usual Wellness Gnosticism/Preservation: - Start Trazodone 50 mg po QHS & 50 mg po QHS PRN between 10 PM & 2 AM for insomnia - Start Melatonin 5 mg po QHS to promote circadian rhythm - Start [place]-3 for brain health, reduce impulsivity, and as adjunctive treatment for mood disorder, continue upon discharge given overall benefits. - Start B1 prophylaxis with 200 mg po for 5 days The patient agreed on the treatment plan, understood the risk, benefit, alternative treatment, potential consequence of no treatment, and gave informed consent. Estimated days: 3 Post hospital care: primary care provider, psychiatric provider Medications and Allergies Allergies Allergy/AdvReac Type Severity Reaction Status Date / Time No Known Allergies Allergy Unverified 08/12/20 00:04 Home Medications Medication Instructions Recorded Confirmed Last Taken Type AtorvaSTATin [Lipitor] 40 mg PO QHS 08/11/20 08/11/[address] [DepaKOTE DR] 125 mg PO BID 08/11/20 08/11/20 Unknown History Isosorbide Mononitrate [Isosorbide 30 mg PO DAILY 08/11/20 08/11/20 Unknown History Mononitrate ER] carvediloL [Coreg] 3.125 mg PO BID 08/11/20 08/11/20 Unknown History donepeziL [Aricept] 10 mg PO HS 08/11/20 08/11/20 Unknown History Nitrofurantoin [place]/M-Cryst 100 mg PO Q12HR 08/12/20 08/12/20 Unknown History [Macrobid CAP] Active Meds: Active Medications Atorvastatin Calcium (Atorvastatin 40 Mg Tab) 40 mg PO QHS [facility] Last Admin: 08/18/20 21:34 Dose: 40 mg Documented by: Carvedilol (Carvedilol 3.125 Mg Tab) 3.125 mg PO BID [facility] Last Admin: 08/19/20 09:39 Dose: 3.125 mg Documented by: Divalproex Sodium (Divalproex Dr 125 Mg Tab) 125 mg PO TID [facility] Last Admin: 08/19/20 08:50 Dose: 125 mg Documented by: Donepezil HCl (Donepezil 10 Mg Tab) 10 mg PO [facility] Last Admin: 08/18/20 21:34 Dose: 10 mg Documented by: Fish Oil ([place]-3 Fatty Acids/Fish Oil 1 Gram Cap) 2,000 mg PO BID [facility] Last Admin: 08/19/20 09:40 Dose: Not Given Documented by: Isosorbide Mononitrate (Isosorbide Mononitrate Er 30 Mg Tab) 30 mg PO DAILY [facility] Last Admin: 08/19/20 09:38 Dose: 30 mg Documented by: Melatonin (Melatonin 5 Mg Tab) 5 mg PO QHS PRN PRN Reason: Sleep Last Admin: 08/18/20 21:35 Dose: 5 mg Documented by: Risperidone (Risperidone 1 Mg Tab) 1 mg PO BID [facility] Last Admin: 08/19/20 09:31 Dose: 1 mg Documented by: Trazodone HCl (Trazodone 50 Mg Tab) 50 mg PO QHS [facility] Last Admin: 08/18/20 21:35 Dose: 50 mg Documented by: Results - Results Labs/Vitals: Laboratory Last Values WBC 8.3 K/mm3 (4.5-11.0) 08/12/20 07:59 RBC 4.82 M/mm3 (3.65-5.03) 08/12/20 07:59 Hgb 15.9 gm/dl (11.8-15.2) H 08/12/20 07:59 Hct 44.5 % (35.5-45.6) 08/12/20 07:59 MCV 92 fl (84-94) 08/12/20 07:59 MCH 33 pg (28-32) H 08/12/20 07:59 MCHC 36 % (32-34) H 08/12/20 07:59 RDW 12.7 % (13.2-15.2) L 08/12/20 07:59 Plt Count 247 K/mm3 (140-440) 08/12/20 07:59 Lymph % (Auto) 12.6 % (13.4-35.0) L 08/12/20 07:59 [place] % (Auto) 13.3 % (0.0-7.3) H 08/12/20 07:59 Eos % (Auto) 1.0 % (0.0-4.3) 08/12/20 07:59 Baso % (Auto) 0.5 % (0.0-1.8) 08/12/20 07:59 Lymph # (Auto) 1.0 K/mm3 (1.2-5.4) L 08/12/20 07:59 [place] # (Auto) 1.1 K/mm3 (0.0-0.8) H 08/12/20 07:59 Eos # (Auto) 0.1 K/mm3 (0.0-0.4) 08/12/20 07:59 Baso # (Auto) 0.0 K/mm3 (0.0-0.1) 08/12/20 07:59 Seg Neutrophils % 72.6 % (40.0-70.0) H 08/12/20 07:59 Seg Neutrophils # 6.0 K/mm3 (1.8-7.7) 08/12/20 07:59 Sodium 143 mmol/L (137-145) D 08/12/20 07:57 Potassium 3.6 mmol/L (3.6-5.0) 08/12/20 07:57 Chloride 102.8 mmol/L (98-107) 08/12/20 07:57 Carbon Dioxide 28 mmol/L (22-30) 08/12/20 07:57 Anion Gap 16 mmol/L 08/12/20 07:57 BUN 21 mg/dL (9-20) H 08/12/20 07:57 Creatinine 0.7 mg/dL (0.8-1.3) L 08/12/20 07:57 Estimated GFR > 60 ml/min 08/12/20 07:57 BUN/Creatinine Ratio 30 % 08/12/20 07:57 Glucose 128 mg/dL (75-100) H 08/12/20 07:57 POC Glucose 120 mg/dL (70-105) H 08/12/20 00:18 Hemoglobin A1c 5.1 % (4-6) 08/12/20 07:57 Calcium 9.2 mg/dL (8.4-10.2) 08/12/20 07:57 Total Bilirubin 2.30 mg/dL (0.1-1.2) H 08/12/20 07:57 AST 74 units/L (5-40) H 08/12/20 07:57 ALT 43 units/L (7-56) 08/12/20 07:57 Alkaline Phosphatase 76 units/L (35-129) 08/12/20 07:57 Total Protein 7.1 g/dL (6.3-8.2) 08/12/20 07:57 Albumin 3.3 g/dL (3.9-5) L 08/12/20 07:57 Albumin/Globulin Ratio 0.9 % 08/12/20 07:57 Triglycerides 87 mg/dL (2-149) 08/12/20 07:57 Cholesterol 193 mg/dL (50-199) 08/12/20 07:57 LDL Cholesterol Direct 125 mg/dL (50-130) 08/12/20 07:57 HDL Cholesterol 55 mg/dL (40-59) 08/12/20 07:57 Cholesterol/HDL Ratio 3.50 % 08/12/20 07:57 TSH 1.220 mlU/mL (0.270-4.200) 08/12/20 07:57 Last Vital Signs Temp 98.3 F 08/19/20 09:38 Pulse 93 H 08/19/20 10:37 Resp 20 08/19/20 09:38 BP 137/79 08/19/20 09:39 Pulse Ox 97 08/18/20 19:47
[2020-08-19] MEDS: VALPROIC ACID 250 MG/5 ML ORAL LIQD PO SCH ×2 (14:25→22:10)
[2020-08-19] MEDS: MELATONIN 5 MG TAB PO PRN (22:13)
[2020-08-19] MEDS: DONEPEZIL 10 MG TAB PO SCH (22:13)
[2020-08-19] MEDS: traZODone 50 MG TAB PO SCH (22:15)
[2020-08-20] MEDS: carvediloL 3.125 MG TAB PO SCH ×2 (09:32→22:05)
[2020-08-20] MEDS: risperiDONE 1 MG TAB PO SCH ×2 (09:33→22:01)
[2020-08-20] MEDS: VALPROIC ACID 250 MG/5 ML ORAL LIQD PO SCH (09:35)
--- NOTE | 2020-08-20 10:23 | Progress Note ---
Subjective Date of service: 08/20/20 Principal diagnosis: MDD Subjective Comment: Per Nurse Note: Last evening the patient rested in bed. He presents as restless. He is constantly moving. He pulls his covers up and down and disrobes as soon as he is dressed. Patient becomes irritable and combative with adls. He was incontinent x 2. Patient was medication compliant with much encouragement. He was given ice water and he reached out and took the cup so he could drink for himself. He drank 2/3 cup water. He refused pudding. Overnight the patient continued to be restless. He was changed x 2 due to incontinence. Patient started coughing about 0300. He coughed in his sleep at times. The head of the bed was elevated. His coughing decreased. He was restless half of the night but rested better during the 2nd part of the night. Will continue to monitor patient for safety. The patient was seen today, he is naked and disheveled while in the bed. A sitter is at bedside with him and states he will not keep any clothes on. The patient is sleeping, he arouses, but is confused. Reason for continued inpatient hospitalization psychiatric: pt has dementia with memory issues. being managed for behavioral outburst and disturbances. Will continue to observe for mood stability due to history of sudden outburst REVIEW OF SYSTEMS ROS cannot be reliably obtained from the patient due to his mental state MENTAL STATUS EXAMINATION Unable to obtain Assessment and Plan (1) Alzheimer's dementia with behavioral disturbance Current Visit: No Status: Acute Treatment Plan Patient admitted for inpatient psychiatric evaluation, medication adjustment and close monitoring The patient's behavior, mood, sleep and appetite will be closely monitored. Patient enrolled in individual and group therapeutic sessions and encouraged to attend. Patient provided with a safe and structured environment. Patient's physical health needs will be addressed by the Hospitalist. Hospitalist Consulted Labs including CBC, CMP, Lipid profile and Hemoglobin A1C levels ordered for baseline reference Social Assessment will be completed and the Florist will work with patient and family to ensure a suitable and safe disposition Medication adjustment will be made as clinically indicated Increased Depakote 250mg po BID Start Mirtazepine 7.5mg po qhs Usual Wellness Congregational/Preservation: - Start Trazodone 50 mg po QHS & 50 mg po QHS PRN between 10 PM & 2 AM for insomnia - Start Melatonin 5 mg po QHS to promote circadian rhythm - Start [place]-3 for brain health, reduce impulsivity, and as adjunctive treatment for mood disorder, continue upon discharge given overall benefits. - Start B1 prophylaxis with 200 mg po for 5 days The patient agreed on the treatment plan, understood the risk, benefit, alternative treatment, potential consequence of no treatment, and gave informed consent. Estimated days: 3 Post hospital care: primary care provider, psychiatric provider Medications and Allergies Allergies Allergy/AdvReac Type Severity Reaction Status Date / Time No Known Allergies Allergy Unverified 08/12/20 00:04 Home Medications Medication Instructions Recorded Confirmed Last Taken Type AtorvaSTATin [Lipitor] 40 mg PO QHS 08/11/20 08/11/[address] [DepZulay DR] 125 mg PO BID 08/11/20 08/11/20 Unknown History Isosorbide Mononitrate [Isosorbide 30 mg PO DAILY 08/11/20 08/11/20 Unknown History Mononitrate ER] carvediloL [Coreg] 3.125 mg PO BID 08/11/20 08/11/20 Unknown History donepeziL [Aricept] 10 mg PO HS 08/11/20 08/11/20 Unknown History Nitrofurantoin [place]/M-Cryst 100 mg PO Q12HR 08/12/20 08/12/20 Unknown History [Macrobid CAP] Active Meds: Active Medications Atorvastatin Calcium (Atorvastatin 40 Mg Tab) 40 mg PO QHS [facility] Last Admin: 08/19/20 22:15 Dose: 40 mg Documented by: Carvedilol (Carvedilol 3.125 Mg Tab) 3.125 mg PO BID [facility] Last Admin: 08/20/20 09:32 Dose: 3.125 mg Documented by: Donepezil HCl (Donepezil 10 Mg Tab) 10 mg PO HS [facility] Last Admin: 08/19/20 22:13 Dose: 10 mg Documented by: Fish Oil ([place]-3 Fatty Acids/Fish Oil 1 Gram Cap) 2,000 mg PO BID [facility] Last Admin: 08/19/20 22:14 Dose: 2,000 mg Documented by: Isosorbide Mononitrate (Isosorbide Mononitrate Er 30 Mg Tab) 30 mg PO DAILY [facility] Last Admin: 08/20/20 09:32 Dose: 30 mg Documented by: Melatonin (Melatonin 5 Mg Tab) 5 mg PO QHS PRN PRN Reason: Sleep Last Admin: 08/19/20 22:13 Dose: 5 mg Documented by: Risperidone (Risperidone 1 Mg Tab) 1 mg PO BID [facility] Last Admin: 08/20/20 09:33 Dose: 1 mg Documented by: Trazodone HCl (Trazodone 50 Mg Tab) 50 mg PO QHS [facility] Last Admin: 08/19/20 22:15 Dose: 50 mg Documented by: Valproic Acid (Valproic Acid 250 Mg/5 Ml Oral Liqd) 125 mg PO TID [facility] Last Admin: 08/20/20 09:35 Dose: 125 mg Documented by: Results - Results Labs/Vitals: Laboratory Last Values WBC 8.3 K/mm3 (4.5-11.0) 08/12/20 07:59 RBC 4.82 M/mm3 (3.65-5.03) 08/12/20 07:59 Hgb 15.9 gm/dl (11.8-15.2) H 08/12/20 07:59 Hct 44.5 % (35.5-45.6) 08/12/20 07:59 MCV 92 fl (84-94) 08/12/20 07:59 MCH 33 pg (28-32) H 08/12/20 07:59 MCHC 36 % (32-34) H 08/12/20 07:59 RDW 12.7 % (13.2-15.2) L 08/12/20 07:59 Plt Count 247 K/mm3 (140-440) 08/12/20 07:59 Lymph % (Auto) 12.6 % (13.4-35.0) L 08/12/20 07:59 [place] % (Auto) 13.3 % (0.0-7.3) H 08/12/20 07:59 Eos % (Auto) 1.0 % (0.0-4.3) 08/12/20 07:59 Baso % (Auto) 0.5 % (0.0-1.8) 08/12/20 07:59 Lymph # (Auto) 1.0 K/mm3 (1.2-5.4) L 08/12/20 07:59 [place] # (Auto) 1.1 K/mm3 (0.0-0.8) H 08/12/20 07:59 Eos # (Auto) 0.1 K/mm3 (0.0-0.4) 08/12/20 07:59 Baso # (Auto) 0.0 K/mm3 (0.0-0.1) 08/12/20 07:59 Seg Neutrophils % 72.6 % (40.0-70.0) H 08/12/20 07:59 Seg Neutrophils # 6.0 K/mm3 (1.8-7.7) 08/12/20 07:59 Sodium 143 mmol/L (137-145) D 08/12/20 07:57 Potassium 3.6 mmol/L (3.6-5.0) 08/12/20 07:57 Chloride 102.8 mmol/L (98-107) 08/12/20 07:57 Carbon Dioxide 28 mmol/L (22-30) 08/12/20 07:57 Anion Gap 16 mmol/L 08/12/20 07:57 BUN 21 mg/dL (9-20) H 08/12/20 07:57 Creatinine 0.7 mg/dL (0.8-1.3) L 08/12/20 07:57 Estimated GFR > 60 ml/min 08/12/20 07:57 BUN/Creatinine Ratio 30 % 08/12/20 07:57 Glucose 128 mg/dL (75-100) H 08/12/20 07:57 POC Glucose 120 mg/dL (70-105) H 08/12/20 00:18 Hemoglobin A1c 5.1 % (4-6) 08/12/20 07:57 Calcium 9.2 mg/dL (8.4-10.2) 08/12/20 07:57 Total Bilirubin 2.30 mg/dL (0.1-1.2) H 08/12/20 07:57 AST 74 units/L (5-40) H 08/12/20 07:57 ALT 43 units/L (7-56) 08/12/20 07:57 Alkaline Phosphatase 76 units/L (35-129) 08/12/20 07:57 Total Protein 7.1 g/dL (6.3-8.2) 08/12/20 07:57 Albumin 3.3 g/dL (3.9-5) L 08/12/20 07:57 Albumin/Globulin Ratio 0.9 % 08/12/20 07:57 Triglycerides 87 mg/dL (2-149) 08/12/20 07:57 Cholesterol 193 mg/dL (50-199) 08/12/20 07:57 LDL Cholesterol Direct 125 mg/dL (50-130) 08/12/20 07:57 HDL Cholesterol 55 mg/dL (40-59) 08/12/20 07:57 Cholesterol/HDL Ratio 3.50 % 08/12/20 07:57 TSH 1.220 mlU/mL (0.270-4.200) 08/12/20 07:57 Last Vital Signs Temp 98.0 F 08/19/20 20:41 Pulse 96 H 08/20/20 09:32 Resp 20 08/19/20 20:41 BP 130/80 08/20/20 09:32 Pulse Ox 92 08/19/20 20:41
[2020-08-20] MEDS: OMEGA-3 FATTY ACIDS/FISH OIL 1 GRAM CAP PO SCH ×2 (11:35→22:01)
[2020-08-20] MEDS: MIRTAZAPINE 15 MG TAB PO SCH (22:00)
[2020-08-20] MEDS: traZODone 50 MG TAB PO SCH (22:00)
[2020-08-20] MEDS: DONEPEZIL 10 MG TAB PO SCH (22:01)
[2020-08-20] MEDS: VALPROIC ACID 250 MG/5 ML ORAL LIQD FEEDTUBE SCH (22:04)
--- NOTE | 2020-08-21 10:24 | Discharge Summary ---
Providers - Providers Date of Admission: 08/11/20 14:56 Date of discharge: 08/21/20 Attending physician: KELLY NGO MD 08/11/20 13:31 Consult to Physician [CONS] Routine Comment: Consulting Provider: MARGARITA OHARA Physician Instructions: Reason For Exam: Med mnagt Primary care physician: NORMAN BRYANT Hospitalization Reason for admission: aggression Admitting Diagnosis: F02.81 - DEMENTIA IN OTH DISEASES CLASSD ELSWHR W BEHAVIORAL DISTURB Condition: Stable Disposition: DC-01 TO HOME OR SELFCARE Time spent for discharge: 40 Allergies/Adverse Reactions: Allergies No Known Allergies Allergy (Unverified 08/12/20 00:04) Vital Signs: Last Vital Signs Temp 98.2 F 08/21/20 10:07 Pulse 43 L 08/21/20 10:07 Resp 18 08/21/20 10:07 BP 132/80 08/21/20 10:07 Pulse Ox 83 L 08/21/20 10:07 Last Lab: Laboratory Last Values WBC 8.3 K/mm3 (4.5-11.0) 08/12/20 07:59 RBC 4.82 M/mm3 (3.65-5.03) 08/12/20 07:59 Hgb 15.9 gm/dl (11.8-15.2) H 08/12/20 07:59 Hct 44.5 % (35.5-45.6) 08/12/20 07:59 MCV 92 fl (84-94) 08/12/20 07:59 MCH 33 pg (28-32) H 08/12/20 07:59 MCHC 36 % (32-34) H 08/12/20 07:59 RDW 12.7 % (13.2-15.2) L 08/12/20 07:59 Plt Count 247 K/mm3 (140-440) 08/12/20 07:59 Lymph % (Auto) 12.6 % (13.4-35.0) L 08/12/20 07:59 [place] % (Auto) 13.3 % (0.0-7.3) H 08/12/20 07:59 Eos % (Auto) 1.0 % (0.0-4.3) 08/12/20 07:59 Baso % (Auto) 0.5 % (0.0-1.8) 08/12/20 07:59 Lymph # (Auto) 1.0 K/mm3 (1.2-5.4) L 08/12/20 07:59 [place] # (Auto) 1.1 K/mm3 (0.0-0.8) H 08/12/20 07:59 Eos # (Auto) 0.1 K/mm3 (0.0-0.4) 08/12/20 07:59 Baso # (Auto) 0.0 K/mm3 (0.0-0.1) 08/12/20 07:59 Seg Neutrophils % 72.6 % (40.0-70.0) H 08/12/20 07:59 Seg Neutrophils # 6.0 K/mm3 (1.8-7.7) 08/12/20 07:59 Sodium 143 mmol/L (137-145) D 08/12/20 07:57 Potassium 3.6 mmol/L (3.6-5.0) 08/12/20 07:57 Chloride 102.8 mmol/L (98-107) 08/12/20 07:57 Carbon Dioxide 28 mmol/L (22-30) 08/12/20 07:57 Anion Gap 16 mmol/L 08/12/20 07:57 BUN 21 mg/dL (9-20) H 08/12/20 07:57 Creatinine 0.7 mg/dL (0.8-1.3) L 08/12/20 07:57 Estimated GFR > 60 ml/min 08/12/20 07:57 BUN/Creatinine Ratio 30 % 08/12/20 07:57 Glucose 128 mg/dL (75-100) H 08/12/20 07:57 POC Glucose 120 mg/dL (70-105) H 08/12/20 00:18 Hemoglobin A1c 5.1 % (4-6) 08/12/20 07:57 Calcium 9.2 mg/dL (8.4-10.2) 08/12/20 07:57 Total Bilirubin 2.30 mg/dL (0.1-1.2) H 08/12/20 07:57 AST 74 units/L (5-40) H 08/12/20 07:57 ALT 43 units/L (7-56) 08/12/20 07:57 Alkaline Phosphatase 76 units/L (35-129) 08/12/20 07:57 Total Protein 7.1 g/dL (6.3-8.2) 08/12/20 07:57 Albumin 3.3 g/dL (3.9-5) L 08/12/20 07:57 Albumin/Globulin Ratio 0.9 % 08/12/20 07:57 Triglycerides 87 mg/dL (2-149) 08/12/20 07:57 Cholesterol 193 mg/dL (50-199) 08/12/20 07:57 LDL Cholesterol Direct 125 mg/dL (50-130) 08/12/20 07:57 HDL Cholesterol 55 mg/dL (40-59) 08/12/20 07:57 Cholesterol/HDL Ratio 3.50 % 08/12/20 07:57 TSH 1.220 mlU/mL (0.270-4.200) 08/12/20 07:57 Core Measure Documentation - Palliative Care Palliative Care/ Comfort Measures: Not Applicable - Core Measures Any of the following diagnoses?: none Exam - Constitutional Vitals: Temp Pulse Resp BP Pulse Ox 98.2 F 43 L 18 132/80 83 L 08/21/20 10:07 08/21/20 10:07 08/21/20 10:07 08/21/20 10:07 08/21/20 10:07 General appearance: Present: no acute distress - EENT Eyes: Present: PERRL, EOM intact ENT: hearing intact, clear oral mucosa - Neck Neck: Present: supple, normal ROM - Respiratory Respiratory effort: normal Plan Activity: advance as tolerated Weight Bearing Status: Weight Bear as Tolerated Care Plan Goals: Maintain good and stable mental health Plan of Treatment: The patient should be compliant with medications, not to use drugs, and not to drink alcohol. The patient understands that if suicidal ideas, homicidal ideas or any endangering feeling arise, the patient should seek assistance including, but not limited to crisis hotline, and emergency room. Follow up with: NORMAN BRYANT MD [Primary Care Provider] - 7 Days Prescriptions: Melatonin [Melatonin 5MG TAB] 5 mg PO QHS PRN #30 tablet PRN Reason: Sleep Mirtazapine [Remeron 15mg TAB] 7.5 mg PO QHS #[address] [Depakote Dr] 125 mg PO BID #60 risperiDONE [RisperDAL] 1 mg PO BID #60 tablet
[2020-08-21] MEDS: OMEGA-3 FATTY ACIDS/FISH OIL 1 GRAM CAP PO SCH ×2 (12:47→21:58)
[2020-08-21] MEDS: risperiDONE 1 MG TAB PO SCH ×2 (12:47→22:00)
[2020-08-21] MEDS: VALPROIC ACID 250 MG/5 ML ORAL LIQD FEEDTUBE SCH ×2 (12:47→21:58)
[2020-08-21] MEDS: carvediloL 3.125 MG TAB PO SCH ×2 (13:04→21:57)
[2020-08-21] MEDS: DONEPEZIL 10 MG TAB PO SCH (21:52)
[2020-08-21] MEDS: MELATONIN 5 MG TAB PO PRN (21:59)
[2020-08-21] MEDS: MIRTAZAPINE 15 MG TAB PO SCH (21:59)
[2020-08-21] MEDS: traZODone 50 MG TAB PO SCH (22:02)
--- NOTE | 2020-08-22 09:14 | Progress Note ---
Subjective Date of service: 08/22/20 Principal diagnosis: MDD Subjective Comment: The patient was seen today, he is sitting in the dayroom, awake. He is calm. He is confused and has poor insight. He is unable to engage in conversation due to his confusion and insight. He says he slept well. The patient is cleared to be discharge from a psychiatric standpoint. It is my clinical opinion, that he has progressive dementia will have no further benefit from a psych services. Discharge was ordered yesterday, but did not take place due to the previous place not accepting the patient back according to the nurse. ROS cannot be reliably obtained from the patient due to his mental state MENTAL STATUS EXAMINATION Unable to obtain Assessment and Plan (1) Alzheimer's dementia with behavioral disturbance Current Visit: No Status: Acute Treatment Plan Patient admitted for inpatient psychiatric evaluation, medication adjustment and close monitoring The patient's behavior, mood, sleep and appetite will be closely monitored. Patient enrolled in individual and group therapeutic sessions and encouraged to attend. Patient provided with a safe and structured environment. Patient's physical health needs will be addressed by the Hospitalist. Hospitalist Consulted Labs including CBC, CMP, Lipid profile and Hemoglobin A1C levels ordered for baseline reference Social Assessment will be completed and the Paint Supervisor will work with patient and family to ensure a suitable and safe disposition Medication adjustment will be made as clinically indicated No changes today Usual Wellness Sikh/Preservation: - Start Trazodone 50 mg po QHS & 50 mg po QHS PRN between 10 PM & 2 AM for insomnia - Start Melatonin 5 mg po QHS to promote circadian rhythm - Start [place]-3 for brain health, reduce impulsivity, and as adjunctive treatment for mood disorder, continue upon discharge given overall benefits. - Start B1 prophylaxis with 200 mg po for 5 days The patient agreed on the treatment plan, understood the risk, benefit, alternative treatment, potential consequence of no treatment, and gave informed consent. Estimated days: Post hospital care: primary care provider, psychiatric provider Medications and Allergies Allergies Allergy/AdvReac Type Severity Reaction Status Date / Time No Known Allergies Allergy Unverified 08/12/20 00:04 Home Medications Medication Instructions Recorded Confirmed Last Taken Type AtorvaSTATin [Lipitor] 40 mg PO QHS 08/11/20 08/11/20 Unknown History Isosorbide Mononitrate [Isosorbide 30 mg PO DAILY 08/11/20 08/11/20 Unknown History Mononitrate ER] carvediloL [Coreg] 3.125 mg PO BID 08/11/20 08/11/20 Unknown History donepeziL [Aricept] 10 mg PO HS 08/11/20 08/11/20 Unknown History Nitrofurantoin [place]/M-Cryst 100 mg PO Q12HR 08/12/20 08/12/20 Unknown History [Macrobid CAP] Divalproex Dr [Depakote Dr] 125 mg PO BID #60 08/21/20 Unknown Rx Melatonin [Melatonin 5MG TAB] 5 mg PO QHS PRN #30 tablet 08/21/20 Unknown Rx Mirtazapine [Remeron 15mg TAB] 7.5 mg PO QHS #15 tablet 08/21/20 Unknown Rx risperiDONE [RisperDAL] 1 mg PO BID #60 tablet 08/21/20 Unknown Rx Active Meds: Active Medications Atorvastatin Calcium (Atorvastatin 40 Mg Tab) 40 mg PO QHS [facility] Last Admin: 08/21/20 21:59 Dose: 40 mg Documented by: Carvedilol (Carvedilol 3.125 Mg Tab) 3.125 mg PO BID [facility] Last Admin: 08/21/20 21:57 Dose: 3.125 mg Documented by: Donepezil HCl (Donepezil 10 Mg Tab) [address] [facility] Last Admin: 08/21/20 21:52 Dose: 10 mg Documented by: Fish Oil ([place]-3 Fatty Acids/Fish Oil 1 Gram Cap) 2,000 mg PO BID [facility] Last Admin: 08/21/20 21:58 Dose: 2,000 mg Documented by: Isosorbide Mononitrate (Isosorbide Mononitrate Er 30 Mg Tab) 30 mg PO DAILY [facility] Last Admin: 08/21/20 13:04 Dose: Not Given Documented by: Melatonin (Melatonin 5 Mg Tab) 5 mg PO QHS PRN PRN Reason: Sleep Last Admin: 08/21/20 21:59 Dose: 5 mg Documented by: Mirtazapine (Mirtazapine 15 Mg Tab) 7.5 mg PO QHS [facility] Last Admin: 08/21/20 21:59 Dose: 7.5 mg Documented by: Risperidone (Risperidone 1 Mg Tab) 1 mg PO BID [facility] Last Admin: 08/21/20 22:00 Dose: 1 mg Documented by: Trazodone HCl (Trazodone 50 Mg Tab) 50 mg PO QHS [facility] Last Admin: 08/21/20 22:02 Dose: 50 mg Documented by: Valproic Acid (Valproic Acid 250 Mg/5 Ml Oral Liqd) 250 mg FEEDTUBE BID [facility] Last Admin: 08/21/20 21:58 Dose: 250 mg Documented by: Results - Results Labs/Vitals: Laboratory Last Values WBC 8.3 K/mm3 (4.5-11.0) 08/12/20 07:59 RBC 4.82 M/mm3 (3.65-5.03) 08/12/20 07:59 Hgb 15.9 gm/dl (11.8-15.2) H 08/12/20 07:59 Hct 44.5 % (35.5-45.6) 08/12/20 07:59 MCV 92 fl (84-94) 08/12/20 07:59 MCH 33 pg (28-32) H 08/12/20 07:59 MCHC 36 % (32-34) H 08/12/20 07:59 RDW 12.7 % (13.2-15.2) L 08/12/20 07:59 Plt Count 247 K/mm3 (140-440) 08/12/20 07:59 Lymph % (Auto) 12.6 % (13.4-35.0) L 08/12/20 07:59 [place] % (Auto) 13.3 % (0.0-7.3) H 08/12/20 07:59 Eos % (Auto) 1.0 % (0.0-4.3) 08/12/20 07:59 Baso % (Auto) 0.5 % (0.0-1.8) 08/12/20 07:59 Lymph # (Auto) 1.0 K/mm3 (1.2-5.4) L 08/12/20 07:59 [place] # (Auto) 1.1 K/mm3 (0.0-0.8) H 08/12/20 07:59 Eos # (Auto) 0.1 K/mm3 (0.0-0.4) 08/12/20 07:59 Baso # (Auto) 0.0 K/mm3 (0.0-0.1) 08/12/20 07:59 Seg Neutrophils % 72.6 % (40.0-70.0) H 08/12/20 07:59 Seg Neutrophils # 6.0 K/mm3 (1.8-7.7) 08/12/20 07:59 Sodium 143 mmol/L (137-145) D 08/12/20 07:57 Potassium 3.6 mmol/L (3.6-5.0) 08/12/20 07:57 Chloride 102.8 mmol/L (98-107) 08/12/20 07:57 Carbon Dioxide 28 mmol/L (22-30) 08/12/20 07:57 Anion Gap 16 mmol/L 08/12/20 07:57 BUN 21 mg/dL (9-20) H 08/12/20 07:57 Creatinine 0.7 mg/dL (0.8-1.3) L 08/12/20 07:57 Estimated GFR > 60 ml/min 08/12/20 07:57 BUN/Creatinine Ratio 30 % 08/12/20 07:57 Glucose 128 mg/dL (75-100) H 08/12/20 07:57 POC Glucose 120 mg/dL (70-105) H 08/12/20 00:18 Hemoglobin A1c 5.1 % (4-6) 08/12/20 07:57 Calcium 9.2 mg/dL (8.4-10.2) 08/12/20 07:57 Total Bilirubin 2.30 mg/dL (0.1-1.2) H 08/12/20 07:57 AST 74 units/L (5-40) H 08/12/20 07:57 ALT 43 units/L (7-56) 08/12/20 07:57 Alkaline Phosphatase 76 units/L (35-129) 08/12/20 07:57 Total Protein 7.1 g/dL (6.3-8.2) 08/12/20 07:57 Albumin 3.3 g/dL (3.9-5) L 08/12/20 07:57 Albumin/Globulin Ratio 0.9 % 08/12/20 07:57 Triglycerides 87 mg/dL (2-149) 08/12/20 07:57 Cholesterol 193 mg/dL (50-199) 08/12/20 07:57 LDL Cholesterol Direct 125 mg/dL (50-130) 08/12/20 07:57 HDL Cholesterol 55 mg/dL (40-59) 08/12/20 07:57 Cholesterol/HDL Ratio 3.50 % 08/12/20 07:57 TSH 1.220 mlU/mL (0.270-4.200) 08/12/20 07:57 Last Vital Signs Temp 98.4 F 08/22/20 08:50 Pulse 67 08/22/20 08:50 Resp 20 08/22/20 08:50 BP 98/74 08/22/20 08:50 Pulse Ox 93 08/22/20 08:50
[2020-08-22] MEDS: carvediloL 3.125 MG TAB PO SCH ×2 (09:23→22:03)
[2020-08-22] MEDS: OMEGA-3 FATTY ACIDS/FISH OIL 1 GRAM CAP PO SCH ×2 (09:34→22:04)
[2020-08-22] MEDS: risperiDONE 1 MG TAB PO SCH ×2 (09:34→22:03)
[2020-08-22] MEDS: VALPROIC ACID 250 MG/5 ML ORAL LIQD FEEDTUBE SCH ×2 (09:34→22:02)
--- NOTE | 2020-08-22 10:20 | XRay Report ---
CHEST 1 VIEW INDICATION / CLINICAL INFORMATION: TB check for inpatient placement protocol. COMPARISON: None available. FINDINGS: SUPPORT DEVICES: None. HEART / MEDIASTINUM: No significant abnormality. LUNGS / PLEURA: Calcified granuloma in the left lower lung. No definite acute disease or radiographic evidence of active tuberculosis No pneumothorax. ADDITIONAL FINDINGS: No significant additional findings. IMPRESSION: No definite acute disease or radiographic evidence of acute tuberculosis Signer Name: Thiago Marquez MD FACR Signed: 08/22/2020 10:15 AM Workstation Name: [employer]
[2020-08-22] MEDS: DONEPEZIL 10 MG TAB PO SCH (22:03)
[2020-08-22] MEDS: MIRTAZAPINE 15 MG TAB PO SCH (22:03)
[2020-08-22] MEDS: traZODone 50 MG TAB PO SCH (22:03)
[2020-08-23] MEDS: OMEGA-3 FATTY ACIDS/FISH OIL 1 GRAM CAP PO SCH ×3 (10:08→23:30)
[2020-08-23] MEDS: carvediloL 3.125 MG TAB PO SCH ×3 (10:08→23:29)
[2020-08-23] MEDS: risperiDONE 1 MG TAB PO SCH ×3 (10:08→23:30)
[2020-08-23] MEDS: VALPROIC ACID 250 MG/5 ML ORAL LIQD FEEDTUBE SCH ×3 (10:08→23:30)
--- NOTE | 2020-08-23 10:43 | Progress Note ---
Subjective Date of service: 08/23/20 Principal diagnosis: MDD Subjective Comment: The patient was seen today, he is sitting up in the chair in the day room. He is calm, but confused. Called to speak with the patient's niece at [phone]. She did not answer. It appeared to be a business number so I did not leave a message for protection of privacy. The patient is cleared to be discharge from a psychiatric standpoint. It is my clinical opinion, that he has progressive dementia will have no further benefit from a psych services. However, the patient is awaiting placement ROS cannot be reliably obtained from the patient due to his mental state MENTAL STATUS EXAMINATION Unable to obtain Assessment and Plan (1) Alzheimer's dementia with behavioral disturbance Current Visit: No Status: Acute Treatment Plan Patient admitted for inpatient psychiatric evaluation, medication adjustment and close monitoring The patient's behavior, mood, sleep and appetite will be closely monitored. Patient enrolled in individual and group therapeutic sessions and encouraged to attend. Patient provided with a safe and structured environment. Patient's physical health needs will be addressed by the Hospitalist. Hospitalist Consulted Labs including CBC, CMP, Lipid profile and Hemoglobin A1C levels ordered for baseline reference Social Assessment will be completed and the Sales Representative Printing will work with patient and family to ensure a suitable and safe disposition Medication adjustment will be made as clinically indicated No changes today Usual Wellness Sikh/Preservation: - Start Trazodone 50 mg po QHS & 50 mg po QHS PRN between 10 PM & 2 AM for insomnia - Start Melatonin 5 mg po QHS to promote circadian rhythm - Start [place]-3 for brain health, reduce impulsivity, and as adjunctive treatment for mood disorder, continue upon discharge given overall benefits. - Start B1 prophylaxis with 200 mg po for 5 days The patient agreed on the treatment plan, understood the risk, benefit, alternative treatment, potential consequence of no treatment, and gave informed consent. Estimated days: Post hospital care: primary care provider, psychiatric provider Medications and Allergies Allergies Allergy/AdvReac Type Severity Reaction Status Date / Time No Known Allergies Allergy Unverified 08/12/20 00:04 Home Medications Medication Instructions Recorded Confirmed Last Taken Type AtorvaSTATin [Lipitor] 40 mg PO QHS 08/11/20 08/11/20 Unknown History Isosorbide Mononitrate [Isosorbide 30 mg PO DAILY 08/11/20 08/11/20 Unknown History Mononitrate ER] carvediloL [Coreg] 3.125 mg PO BID 08/11/20 08/11/20 Unknown History donepeziL [Aricept] 10 mg PO HS 08/11/20 08/11/20 Unknown History Nitrofurantoin [place]/M-Cryst 100 mg PO Q12HR 08/12/20 08/12/20 Unknown History [Macrobid CAP] Divalproex Dr [Depakote Dr] 125 mg PO BID #60 08/21/20 Unknown Rx Melatonin [Melatonin 5MG TAB] 5 mg PO QHS PRN #30 tablet 08/21/20 Unknown Rx Mirtazapine [Remeron 15mg TAB] 7.5 mg PO QHS #15 tablet 08/21/20 Unknown Rx risperiDONE [RisperDAL] 1 mg PO BID #60 tablet 08/21/20 Unknown Rx Active Meds: Active Medications Atorvastatin Calcium (Atorvastatin 40 Mg Tab) 40 mg PO QHS [facility] Last Admin: 08/22/20 22:03 Dose: 40 mg Documented by: Carvedilol (Carvedilol 3.125 Mg Tab) 3.125 mg PO BID [facility] Last Admin: 08/23/20 10:08 Dose: Not Given Documented by: Donepezil HCl (Donepezil 10 Mg Tab) 10 mg PO [facility] Last Admin: 08/22/20 22:03 Dose: 10 mg Documented by: Fish Oil ([place]-3 Fatty Acids/Fish Oil 1 Gram Cap) 2,000 mg PO BID [facility] Last Admin: 08/23/20 10:08 Dose: Not Given Documented by: Isosorbide Mononitrate (Isosorbide Mononitrate Er 30 Mg Tab) 30 mg PO DAILY [facility] Last Admin: 08/23/20 10:08 Dose: 30 mg Documented by: Melatonin (Melatonin 5 Mg Tab) 5 mg PO QHS PRN PRN Reason: Sleep Last Admin: 08/21/20 21:59 Dose: 5 mg Documented by: Mirtazapine (Mirtazapine 15 Mg Tab) 7.5 mg PO QHS [facility] Last Admin: 08/22/20 22:03 Dose: 7.5 mg Documented by: Risperidone (Risperidone 1 Mg Tab) 1 mg PO BID [facility] Last Admin: 08/23/20 10:08 Dose: Not Given Documented by: Trazodone HCl (Trazodone 50 Mg Tab) 50 mg PO QHS [facility] Last Admin: 08/22/20 22:03 Dose: 50 mg Documented by: Valproic Acid (Valproic Acid 250 Mg/5 Ml Oral Liqd) 250 mg FEEDTUBE BID [facility] Last Admin: 08/23/20 10:08 Dose: Not Given Documented by: Results - Results Labs/Vitals: Laboratory Last Values WBC 8.3 K/mm3 (4.5-11.0) 08/12/20 07:59 RBC 4.82 M/mm3 (3.65-5.03) 08/12/20 07:59 Hgb 15.9 gm/dl (11.8-15.2) H 08/12/20 07:59 Hct 44.5 % (35.5-45.6) 08/12/20 07:59 MCV 92 fl (84-94) 08/12/20 07:59 MCH 33 pg (28-32) H 08/12/20 07:59 MCHC 36 % (32-34) H 08/12/20 07:59 RDW 12.7 % (13.2-15.2) L 08/12/20 07:59 Plt Count 247 K/mm3 (140-440) 08/12/20 07:59 Lymph % (Auto) 12.6 % (13.4-35.0) L 08/12/20 07:59 [place] % (Auto) 13.3 % (0.0-7.3) H 08/12/20 07:59 Eos % (Auto) 1.0 % (0.0-4.3) 08/12/20 07:59 Baso % (Auto) 0.5 % (0.0-1.8) 08/12/20 07:59 Lymph # (Auto) 1.0 K/mm3 (1.2-5.4) L 08/12/20 07:59 [place] # (Auto) 1.1 K/mm3 (0.0-0.8) H 08/12/20 07:59 Eos # (Auto) 0.1 K/mm3 (0.0-0.4) 08/12/20 07:59 Baso # (Auto) 0.0 K/mm3 (0.0-0.1) 08/12/20 07:59 Seg Neutrophils % 72.6 % (40.0-70.0) H 08/12/20 07:59 Seg Neutrophils # 6.0 K/mm3 (1.8-7.7) 08/12/20 07:59 Sodium 143 mmol/L (137-145) D 08/12/20 07:57 Potassium 3.6 mmol/L (3.6-5.0) 08/12/20 07:57 Chloride 102.8 mmol/L (98-107) 08/12/20 07:57 Carbon Dioxide 28 mmol/L (22-30) 08/12/20 07:57 Anion Gap 16 mmol/L 08/12/20 07:57 BUN 21 mg/dL (9-20) H 08/12/20 07:57 Creatinine 0.7 mg/dL (0.8-1.3) L 08/12/20 07:57 Estimated GFR > 60 ml/min 08/12/20 07:57 BUN/Creatinine Ratio 30 % 08/12/20 07:57 Glucose 128 mg/dL (75-100) H 08/12/20 07:57 POC Glucose 120 mg/dL (70-105) H 08/12/20 00:18 Hemoglobin A1c 5.1 % (4-6) 08/12/20 07:57 Calcium 9.2 mg/dL (8.4-10.2) 08/12/20 07:57 Total Bilirubin 2.30 mg/dL (0.1-1.2) H 08/12/20 07:57 AST 74 units/L (5-40) H 08/12/20 07:57 ALT 43 units/L (7-56) 08/12/20 07:57 Alkaline Phosphatase 76 units/L (35-129) 08/12/20 07:57 Total Protein 7.1 g/dL (6.3-8.2) 08/12/20 07:57 Albumin 3.3 g/dL (3.9-5) L 08/12/20 07:57 Albumin/Globulin Ratio 0.9 % 08/12/20 07:57 Triglycerides 87 mg/dL (2-149) 08/12/20 07:57 Cholesterol 193 mg/dL (50-199) 08/12/20 07:57 LDL Cholesterol Direct 125 mg/dL (50-130) 08/12/20 07:57 HDL Cholesterol 55 mg/dL (40-59) 08/12/20 07:57 Cholesterol/HDL Ratio 3.50 % 08/12/20 07:57 TSH 1.220 mlU/mL (0.270-4.200) 08/12/20 07:57 Last Vital Signs Temp 98.0 F 08/23/20 09:10 Pulse 110 H 08/23/20 09:10 Resp 16 08/23/20 09:10 BP 122/65 08/23/20 09:10 Pulse Ox 94 08/23/20 09:10
[2020-08-23] MEDS: DONEPEZIL 10 MG TAB PO SCH ×2 (22:24→23:29)
[2020-08-23] MEDS: traZODone 50 MG TAB PO SCH ×2 (22:25→23:30)
[2020-08-23] MEDS: MIRTAZAPINE 15 MG TAB PO SCH ×2 (22:25→23:30)
[2020-08-23 23:30] VITALS: BP 125/68
--- NOTE | 2020-08-24 10:40 | Discharge Summary ---
Providers - Providers Date of Admission: 08/11/20 14:56 Date of discharge: 08/24/20 Attending physician: KELLY NGO MD 08/11/20 13:31 Consult to Physician [CONS] Routine Comment: Consulting Provider: MARGARITA OHARA Physician Instructions: Reason For Exam: Med mnagt Primary care physician: NORMAN BRYANT Hospitalization Reason for admission: agitation Admitting Diagnosis: F02.81 - DEMENTIA IN OTH DISEASES CLASSD ELSWHR W BEHAVIORAL DISTURB Condition: Stable Disposition: DC-50 TO HOSPICE (HOME) Time spent for discharge: 38 Allergies/Adverse Reactions: Allergies No Known Allergies Allergy (Unverified 08/12/20 00:04) Vital Signs: Last Vital Signs Temp 98.0 F 08/23/20 09:10 Pulse 70 08/23/20 23:29 Resp 18 08/23/20 22:00 BP 125/68 08/23/20 23:29 Pulse Ox 92 08/23/20 22:00 Last Lab: Laboratory Last Values WBC 8.3 K/mm3 (4.5-11.0) 08/12/20 07:59 RBC 4.82 M/mm3 (3.65-5.03) 08/12/20 07:59 Hgb 15.9 gm/dl (11.8-15.2) H 08/12/20 07:59 Hct 44.5 % (35.5-45.6) 08/12/20 07:59 MCV 92 fl (84-94) 08/12/20 07:59 MCH 33 pg (28-32) H 08/12/20 07:59 MCHC 36 % (32-34) H 08/12/20 07:59 RDW 12.7 % (13.2-15.2) L 08/12/20 07:59 Plt Count 247 K/mm3 (140-440) 08/12/20 07:59 Lymph % (Auto) 12.6 % (13.4-35.0) L 08/12/20 07:59 [place] % (Auto) 13.3 % (0.0-7.3) H 08/12/20 07:59 Eos % (Auto) 1.0 % (0.0-4.3) 08/12/20 07:59 Baso % (Auto) 0.5 % (0.0-1.8) 08/12/20 07:59 Lymph # (Auto) 1.0 K/mm3 (1.2-5.4) L 08/12/20 07:59 [place] # (Auto) 1.1 K/mm3 (0.0-0.8) H 08/12/20 07:59 Eos # (Auto) 0.1 K/mm3 (0.0-0.4) 08/12/20 07:59 Baso # (Auto) 0.0 K/mm3 (0.0-0.1) 08/12/20 07:59 Seg Neutrophils % 72.6 % (40.0-70.0) H 08/12/20 07:59 Seg Neutrophils # 6.0 K/mm3 (1.8-7.7) 08/12/20 07:59 Sodium 143 mmol/L (137-145) D 08/12/20 07:57 Potassium 3.6 mmol/L (3.6-5.0) 08/12/20 07:57 Chloride 102.8 mmol/L (98-107) 08/12/20 07:57 Carbon Dioxide 28 mmol/L (22-30) 08/12/20 07:57 Anion Gap 16 mmol/L 08/12/20 07:57 BUN 21 mg/dL (9-20) H 08/12/20 07:57 Creatinine 0.7 mg/dL (0.8-1.3) L 08/12/20 07:57 Estimated GFR > 60 ml/min 08/12/20 07:57 BUN/Creatinine Ratio 30 % 08/12/20 07:57 Glucose 128 mg/dL (75-100) H 08/12/20 07:57 POC Glucose 120 mg/dL (70-105) H 08/12/20 00:18 Hemoglobin A1c 5.1 % (4-6) 08/12/20 07:57 Calcium 9.2 mg/dL (8.4-10.2) 08/12/20 07:57 Total Bilirubin 2.30 mg/dL (0.1-1.2) H 08/12/20 07:57 AST 74 units/L (5-40) H 08/12/20 07:57 ALT 43 units/L (7-56) 08/12/20 07:57 Alkaline Phosphatase 76 units/L (35-129) 08/12/20 07:57 Total Protein 7.1 g/dL (6.3-8.2) 08/12/20 07:57 Albumin 3.3 g/dL (3.9-5) L 08/12/20 07:57 Albumin/Globulin Ratio 0.9 % 08/12/20 07:57 Triglycerides 87 mg/dL (2-149) 08/12/20 07:57 Cholesterol 193 mg/dL (50-199) 08/12/20 07:57 LDL Cholesterol Direct 125 mg/dL (50-130) 08/12/20 07:57 HDL Cholesterol 55 mg/dL (40-59) 08/12/20 07:57 Cholesterol/HDL Ratio 3.50 % 08/12/20 07:57 TSH 1.220 mlU/mL (0.270-4.200) 08/12/20 07:57 Core Measure Documentation - Palliative Care Palliative Care/ Comfort Measures: Not Applicable - Core Measures Any of the following diagnoses?: none Exam - Constitutional Vitals: Temp Pulse Resp BP Pulse Ox 98.0 F 70 18 125/68 92 08/23/20 09:10 08/23/20 23:29 08/23/20 22:00 08/23/20 23:29 08/23/20 22:00 General appearance: Present: no acute distress - EENT Eyes: Present: EOM intact ENT: hearing intact, clear oral mucosa - Neck Neck: Present: supple, normal ROM - Respiratory Respiratory effort: normal Plan Activity: advance as tolerated Weight Bearing Status: Weight Bear as Tolerated Care Plan Goals: Maintain good and stable mental health Plan of Treatment: The patient should be compliant with medications, not to use drugs, and not to drink alcohol. The patient understands that if suicidal ideas, homicidal ideas or any endangering feeling arise, the patient should seek assistance including, but not limited to crisis hotline, and emergency room. Follow up with: NORMAN BRYANT MD [Primary Care Provider] - 7 Days Prescriptions: Melatonin [Melatonin 5MG TAB] 5 mg PO QHS PRN #30 tablet PRN Reason: Sleep Mirtazapine [Remeron 15mg TAB] 7.5 mg PO QHS #[address] [Depakote Dr] 125 mg PO BID #60 risperiDONE [RisperDAL] 1 mg PO BID #60 tablet
[2020-08-24] MEDS: VALPROIC ACID 250 MG/5 ML ORAL LIQD FEEDTUBE SCH (10:57)
[2020-08-24] MEDS: carvediloL 3.125 MG TAB PO SCH (10:57)
[2020-08-24] MEDS: OMEGA-3 FATTY ACIDS/FISH OIL 1 GRAM CAP PO SCH (10:57)
[2020-08-24] MEDS: risperiDONE 1 MG TAB PO SCH (10:57)
== END 2020-08-24 14:55 | disposition hospice, home (50) | DRG 57 ==
LOC: 3A 10:42 → UNDOADMIN 10:42 → 5A 14:56
PROVIDERS: ADMIT Psychiatry & Neurology Psychiatry; ATTEND Psychiatry & Neurology Psychiatry
DX: G30.8 Other Alzheimer's disease (principal); F02.81 Dementia in other diseases classified elsewhere, unspecified severity, with behavioral disturbance; I67.2 Cerebral atherosclerosis; Z79.899 Other long term (current) drug therapy; I25.10 Atherosclerotic heart disease of native coronary artery without angina pectoris; Z20.822 Contact with and (suspected) exposure to COVID-19; Z95.1 Presence of aortocoronary bypass graft; Z82.49 Family history of ischemic heart disease and other diseases of the circulatory system
CPT/HCPCS: 36415; 71045; 80053; 80061; 82962; 83036; 84443; 85025; G0378; J3486; U0003